=== PATIENT | male | born 1955 | race American Indian/Alaskan Native ===

== ENCOUNTER 2017-01-18 14:39 | Inpatient (IN) | payer MEDICAID, OTHER ==
[2017-01-18 15:28] LABS: BUN/Creatinine Ratio 31.25; Calcium 8.7 mg/dL (8.4-10.2); Chloride 98.8 mmol/L (98-107); Potassium 5.7 mmol/L (3.6-5.0)
[2017-01-18 15:34] LABS: Basophils % (Auto) 0.5 % (0.0-1.8); Eosinophils % (Auto) 0.4 % (0.0-4.3); Hematocrit 36.5 % (35.5-45.6); Hemoglobin 11.2 gm/dl (11.8-15.2); Mean Corpuscular HGB Conc 31 % (32-34); Mean Corpuscular Hemoglobin 26 pg (28-32); Mean Corpuscular Volume 86 fl (84-94); Platelet Count 110 K/mm3 (140-440); Red Blood Count 4.24 M/mm3 (3.65-5.03); White Blood Count 4.4 K/mm3 (4.5-11.0)
[2017-01-18] MEDS ORDERED: PROVENTIL IH ONE (16:00)
[2017-01-18] MEDS ORDERED: KIONEX PO ONE (16:00)
[2017-01-18] MEDS ORDERED: LASIX IV ONE (16:00)
[2017-01-18] MEDS ORDERED: CALCIUM GLUCONATE 1,000 MG in NACL 0.9% 100 ML IV ONE (16:00)
[2017-01-18] MEDS ORDERED: ZOFRAN IV ONE (16:01)
[2017-01-18] MEDS ORDERED: MORPHINE IV ONE (16:01)
--- NOTE | 2017-01-18 16:06 | Emergency Department Report ---
HPI - General Chief Complaint: Dyspnea/Respdistress Time Seen by Provider: 01/18/17 15:54 - HPI HPI: The patient is a 61-year-old male with a history of COPD, CHF, CK, and who presents for evaluation of chest pain or dyspnea. The patient reports 1 week of progressive dyspnea and chest pain, 5/10 in severity, pressure-like in quality, worsened with exertion or physical activity. He states that his dyspnea has been severe, constant, also worse with exertion, and improved with rest. He also reports associated bilateral lower leg swelling. The patient denies fever, syncope, hemoptysis, unilateral leg swelling, recent immobilization, history of DVT or PE, recent cancer. ED Past Medical Hx - Past Medical History Previous Medical History?: Yes Hx Hypertension: Yes Hx Heart Attack/AMI: No Hx Congestive Heart Failure: Yes (echo 04/25/2060 ER 15-20%. Evidence of severe pulmonary hypertension) Hx Diabetes: Yes Hx Deep Vein Thrombosis: No Hx Pulmonary Embolism: Yes Hx Liver Disease: No Hx Renal Disease: No Hx Sickle Cell Disease: No Hx Arthritis: No Hx Seizures: No Hx Kidney Stones: No Hx Asthma: No Hx COPD: Yes Hx Dementia: No Hx HIV: No Additional medical history: PE 2012 - Surgical History Past Surgical History?: Yes Hx Coronary Stent: No Hx Pacemaker: No Hx Internal Defibrillator: Yes (removed Jul) - Social History Smoking Status: Former Smoker Substance Use Type: Alcohol, Prescribed - Medications Home Medications: Home Medications Medication Instructions Recorded Confirmed Last Taken Type Carvedilol [Coreg] 25 mg PO BID tablet 05/01/15 04/25/16 04/24/16 Rx ISOSORBIDE MONOnitrate [Imdur ER] 120 mg PO QDAY tablet 05/01/15 04/25/1604/24 Rx Insulin Glargine [Lantus VIAL] 16 unit SUB-Q QHS #500 units 05/01/15 04/25/16 Rx Pregabalin [Lyrica] 75 mg PO BID capsule 05/01/15 04/25/16 04/25/16 Rx Bumetanide [Bumex] 1 mg PO BID 04/25/16 04/25/16 04/24/16 History Aspirin [Aspirin BABY CHEW TAB] 81 mg PO QDAY tab.chew 04/28/16 Unknown Rx Ipratropium/Albuterol Sulfate 1 ampul IH Q6HRT #30 ampul.neb 04/28/16 Unknown Rx [Duoneb 0.5 mg-3 mg/3 ml Soln] Lisinopril [Zestril TAB] 5 mg PO QDAY #30 tablet 04/28/16 Unknown Rx Metolazone [Zaroxolyn] 5 mg PO QDAY #30 tablet 04/28/16 Unknown Rx Warfarin [Coumadin] 10 mg PO DAILY@1700 tablet 04/28/16 Unknown Rx hydrALAZINE [Apresoline TAB] 50 mg PO Q8HR #90 tablet 04/28/16 Unknown Rx HYDROcodone/APAP 7.5-325 [[place] 1 each PO Q8HR PRN #21 tablet 06/30/16 Unknown Rx 7.5-325 mg TAB] ED Review of Systems ROS: Stated complaint: CHF Other details as noted in HPI Constitutional: denies: fever ENT: denies: throat or neck pain Respiratory: reports cough, shortness of breath Cardiovascular: denies: chest pain Endocrine: denies unexplained weight loss or gain Gastrointestinal: denies: abdominal pain, nausea Genitourinary: denies: dysuria Musculoskeletal: denies: leg swelling Skin: denies: rash Neurological: denies: headache Hematological/Lymphatic: denies: easy bleeding or easy bruising Psych: denies sadness or hopelessness Physical Exam - Physical Exam Vital Signs: Vital Signs 01/18/17 01/18/17 14:50 15:39 Temperature 97 F L Pulse Rate 65 Respiratory 20 22 Rate Blood Pressure 155/90 O2 Sat by Pulse 95 97 Oximetry Physical Exam: General: well-nourished, well-developed, no acute distress Head: Normocephalic, atraumatic Eyes: normal sclera ENT: Mucous membranes are pink and moist Neck: trachea midline, neck supple, No neck stiffness, no cervical adenopathy Respiratory: Diminished breath sounds and wheezing present throughout lung isidro bilaterally, mild crackles present to bibasilar lung isidro Cardio: S1 and S2 present, no murmurs, rubs, gallops, capillary refill is brisk Abdomen: Normoactive bowel sounds, soft abdomen, no rigidity, no guarding or rebound tenderness Chest WALL/Back: No tenderness to palpation of the chest wall, no CVA tenderness with percussion Musc: 1+ pitting edema of bilateral lower legs present Skin: No rash Neuro: no facial drooping, normal speech Psych: Normal affect ED Course Vital Signs 01/18/17 01/18/17 14:50 15:39 Temperature 97 F L Pulse Rate 65 Respiratory 20 22 Rate Blood Pressure 155/90 O2 Sat by Pulse 95 97 Oximetry ED Medical Decision Making - Lab Data Result diagrams: 01/18/17 14:57 01/18/17 14:57 - Medical Decision Making The patient was seen and examined by myself. The patient is placed on a monitoring analyst and continuous pulse ox. On initial evaluation, the patient was found to be in no distress. EKG was negative for findings suggestive of acute cardiac infarct. The patient is given an aspirin and a nitroglycerin tablet. Labs and imaging are obtained. The patient is given a DuoNeb breathing treatment and IV site measuring for treatment of COPD exacerbation. Chest x-ray is negative for pneumothorax, focal consolidation, pulmonary vascular congestion, pleural effusion, or other obvious acute cardiopulmonary disease process. Lab results revealed elevated glucose 172, elevated creatinine level of 2.4, elevated potassium level of 5.7, elevated troponin level of 0.122, troponin grossly at patient baseline on previous evaluations here. The patient is given albuterol occasionally for treatment of hyperkalemia. The on-call hospitalist service was contacted. They agreed to admit the patient for further treatment and close monitoring. The ED admit order was placed. The patient was admitted in guarded condition. Critical care attestation.: If time is entered above; I have spent that time in minutes in the direct care of this critically ill patient, excluding procedure time. ED Disposition Clinical Impression: Elevated troponin Disposition: OP ADMITTED IP TO THIS HOSP Is pt being admited?: Yes Does the pt Need Aspirin: Yes Condition: Fair Time of Disposition: 16:02
[2017-01-18] MEDS ORDERED: BABY ASPIRIN PO ONE (16:07)
--- NOTE | 2017-01-18 20:53 | Admit Criteria Form ---
Admission Criteria Documentation: COPD Clinical Indications for Admission to Inpatient Care (Place 'X' for any and all applicable criteria): Admission is indicated for ANY ONE of the following (1)(2)(3): [X ]I. Acute exacerbation by high-risk comorbidity (e.g., pneumonia, dysrhythmia, heart failure, pleural effusion, pneumothorax) or severe underlying COPD (e.g., steroid dependent) [ ]II. Inpatient admission required rather than observation care (see Chronic Obstructive Pulmonary Disease: Observation Care) because of ANY ONE of the following: [ ]a) New or pre-existing signs or symptoms of COPD (eg, dyspnea or Tachypnea at rest or with minimal activity) that persist despite outpatient and observation care treatment [ ]b) New-onset hypoxemia (room air SaO2 less than 90%, PO2 less than 60 mm Hg (8.0 kPa)) that persists despite outpatient and observation care treatment [ ]c) Worsening of pre-existing hypoxemia (eg, new or increased requirement for supplemental oxygen to maintain oxygenation at baseline level) that persists despite outpatient and observation care treatment, with oxygen treatment needs performable only in acute inpatient setting [ ]d) Hypercarbia (PCO2 greater than 40 mm Hg (5.3 kPa))-induced respiratory acidosis (pH less than 7.35) that persists despite outpatient and observation care treatment [ ]e) Supplemental oxygen or respiratory treatments for over 24 hours that are performable only in acute inpatient setting [ ]f) Chest tube placement with active evacuation (e.g., suction, drainage) (5) [ ]g) Other condition, treatment or monitoring requiring inpatient admission [ ]III. Planned invasive surgical or diagnostic procedures requiring acute- care hospitalization [ ]IV. Acute respiratory failure (e.g., uncompensated hypercarbia, severe hypoxemia) [ ]V. Severe comorbid condition (e.g., severe steroid myopathy, acute vertebral fracture) that has acutely worsened pulmonary function [ ]. Confusion state, lethargy, obtundation, stupor or coma Extended stay beyond goal length of stay may be needed for (31)(32): [ ]a ) Respiratory Failure. [ ]b) Severe or persisting hypoxemia or hypercarbia [ ]c) Severe or persistent dyspnea [ ]d) Comorbidities (e.g. chronic heart failure, atrial fibrillation with rapid response, pneumonia) [ ]e) Malnutrition The original [facility] content created by [facility] has been revised. The portions of the content which have been revised are identified through the use of italic text or in bold, and [facility] has neither reviewed nor approved the modified material. All other unmodified content is copyright [facility]. Please see references footnoted in the original [facility] edition 2016 Admission Criteria Met: Yes
--- NOTE | 2017-01-18 21:05 | History and Physical Report ---
History of Present Illness Date of examination: 01/18/17 Date of admission: 01/18/17 19:10 Chief complaint: Progressive Dyspnea 1 week History of present illness: 61 y/o male with HX of copd Htn CHF PE T2DM comes in for increasing Sob for 1 week.Cough productive of mucoid sputum no chills .NO fever no chills. Patient also has chest pain which is 5/10 pressure-like wanted quality worsened with physical activity. Shortness of breath is worse with exertion:patient states that his dyspnea has been severe constant and worse with exertion and improved with rest. Patient also says that he has bilateral leg swelling. Patient denies fever or syncope hemoptysis or recent immobilization history of DVT or PE or any cancer. Past History Past Medical History: CAD, diabetes, hypertension, hyperlipidemia (*1 that this was something) Past Surgical History: Other (internal defibrillator) Social history: smoking (former smoker alcohol occasionally.) Medications and Allergies Allergies Allergy/AdvReac Type Severity Reaction Status Date / Time No Known Allergies Allergy Verified 04/29/15 08:10 Home Medications Medication Instructions Recorded Confirmed Last Taken Type Carvedilol [Coreg] 25 mg PO BID tablet 05/01/15 01/18/17 04/24/16 Rx ISOSORBIDE MONOnitrate [Imdur ER] 120 mg PO QDAY tablet 05/01/15 01/18/1704/24 Rx Bumetanide [Bumex] 1 mg PO BID 04/25/16 01/18/17 04/24/16 History Aspirin [Aspirin BABY CHEW TAB] 81 mg PO QDAY tab.chew 04/28/16 01/18/17 Unknown Rx Ipratropium/Albuterol Sulfate 1 ampul IH Q6HRT #30 ampul.neb 04/28/16 01/18/17 Unknown Rx [Duoneb 0.5 mg-3 mg/3 ml Soln] hydrALAZINE [Apresoline TAB] 50 mg PO Q8HR #90 tablet 04/28/16 01/18/17 Unknown Rx Gabapentin [Neurontin] 300 mg PO Q8HR 01/18/17 01/18/17 Unknown History HYDROcodone/APAP 7.5-325 [[place] 5 mg PO Q8HR PRN 01/18/17 01/18/17 Unknown History 7.5-325 mg TAB] Insulin Glargine [Lantus VIAL] 25 unit SUB-Q QHS 01/18/17 01/18/17 Unknown History Losartan [Cozaar] 50 mg PO QDAY 01/18/17 01/18/17 Unknown History Review of Systems All systems: negative Constitutional: no weight loss, no weight gain Ears, nose, mouth and throat: no sore throat, no odynophagia, no voice changes, no post-nasal drip Cardiovascular: chest pain, shortness of breath, dyspnea on exertion Respiratory: cough with sputum, dyspnea on exertion, congestion, wheezing Gastrointestinal: no nausea, no vomiting, no diarrhea, no constipation Genitourinary Male: no hematuria, no flank pain, no urinary frequency, no urinary hesitancy, no nocturia, no genital pain Musculoskeletal: no neck stiffness, no neck pain, no myalgias Integumentary: no rash, no pruritis, no redness, no sores Neurological: no seizures, no syncope Psychiatric: no hallucinations, no depression Endocrine: no cold intolerance, no heat intolerance, no polydipsia, no polyuria Exam - Constitutional Vitals: Temp Pulse Resp BP Pulse Ox 97 F L 72 13 162/89 97 01/18/17 14:50 01/18/17 19:00 01/18/17 19:00 01/18/17 19:00 01/18/17 15:39 General appearance: Present: no acute distress, well-nourished - EENT Eyes: Present: PERRL ENT: hearing intact, clear oral mucosa - Neck Neck: Present: supple, normal ROM - Respiratory Respiratory effort: normal Respiratory: bilateral: CTA, rales, rhonchi - Cardiovascular Heart Sounds: Present: S1 & S2. Absent: rub, click - Extremities Extremities: pulses symmetrical, No edema Peripheral Pulses: within normal limits - Abdominal General gastrointestinal: Present: soft, non-tender, non-distended, normal bowel sounds Male genitourinary: Present: normal - Integumentary Integumentary: Present: clear, warm, dry - Musculoskeletal Musculoskeletal: gait normal, strength equal bilaterally - Psychiatric Psychiatric: appropriate mood/affect, intact judgment & insight - Neurologic Neurologic: CNII-XII intact, moves all extremities Results - Labs CBC & Chem 7: 01/19/17 05:00 01/19/17 05:00 Labs: Laboratory Last Values WBC 4.4 K/mm3 (4.5-11.0) L 01/18/17 14:57 RBC 4.24 M/mm3 (3.65-5.03) 01/18/17 14:57 Hgb 11.2 gm/dl (11.8-15.2) L 01/18/17 14:57 Hct 36.5 % (35.5-45.6) 01/18/17 14:57 MCV 86 fl (84-94) 01/18/17 14:57 MCH 26 pg (28-32) L 01/18/17 14:57 MCHC 31 % (32-34) L 01/18/17 14:57 RDW 22.0 % (13.2-15.2) H 01/18/17 14:57 Plt Count 110 K/mm3 (140-440) L 01/18/17 14:57 Lymph % (Auto) 9.2 % (13.4-35.0) L 01/18/17 14:57 [place] % (Auto) 6.5 % (0.0-7.3) 01/18/17 14:57 Eos % (Auto) 0.4 % (0.0-4.3) 01/18/17 14:57 Baso % (Auto) 0.5 % (0.0-1.8) 01/18/17 14:57 Lymph # 0.4 K/mm3 (1.2-5.4) L 01/18/17 14:57 [place] # 0.3 K/mm3 (0.0-0.8) 01/18/17 14:57 Eos # 0.0 K/mm3 (0.0-0.4) 01/18/17 14:57 Baso # 0.0 K/mm3 (0.0-0.1) 01/18/17 14:57 Seg Neutrophils % 83.4 % (40.0-70.0) H 01/18/17 14:57 Seg Neutrophils # 3.7 K/mm3 (1.8-7.7) 01/18/17 14:57 D-Dimer 1652.46 ng/mlDDU (0-234) H 01/18/17 14:59 Sodium 137 mmol/L (137-145) 01/18/17 14:57 Potassium 5.7 mmol/L (3.6-5.0) H 01/18/17 14:57 Chloride 98.8 mmol/L (98-107) 01/18/17 14:57 Carbon Dioxide 24 mmol/L (22-30) 01/18/17 14:57 Anion Gap 20 mmol/L 01/18/17 14:57 BUN 75 mg/dL (9-20) H 01/18/17 14:57 Creatinine 2.4 mg/dL (0.8-1.5) H 01/18/17 14:57 Estimated GFR 33 ml/min 01/18/17 14:57 BUN/Creatinine Ratio 31.25 % 01/18/17 14:57 Glucose 172 mg/dL (75-100) H 01/18/17 14:57 Calcium 8.7 mg/dL (8.4-10.2) 01/18/17 14:57 Troponin T 0.122 ng/mL (0.00-0.029) H* 01/18/17 14:57 Triglycerides 76 mg/dL (2-149) 01/18/17 14:57 Cholesterol 117 mg/dL (50-199) 01/18/17 14:57 LDL Cholesterol Direct 58 mg/dL (50-130) 01/18/17 14:57 HDL Cholesterol 44 mg/dL (40-59) 01/18/17 14:57 Cholesterol/HDL Ratio 2.65 % 01/18/17 14:57 - Imaging and Cardiology EKG: report reviewed Chest x-ray: report reviewed Assessment and Plan Advance Directives: Yes (wants full code) VTE prophylaxis?: Chemical, Not ordered Plan of care discussed with patient/family: Yes - Patient Problems (1) Acute exacerbation of chronic obstructive pulmonary disease (COPD) Current Visit: Yes Status: Acute Plan to address problem: Patient needs to be on duo nebs every 6 hrs [id number] and every 3 hrs prn and IV Levaquin 750 every 24 hours and the pharmacy to readjust the dosage. IV Solu-Medrol 60 mg every 8 hourse. (2) Acute on chronic systolic heart failure Current Visit: Yes Status: Acute Plan to address problem: Patient started on Lasix and potassium on a regular basis.. Po potassium and IV Lasix at the time of discharge. . (3) Elevated troponin Current Visit: Yes Status: Acute Plan to address problem: May be nonspecific. (4) Accelerated hypertension Current Visit: No Status: Acute Plan to address problem: Antihypertensives to be adjusted. (5) Transaminitis Current Visit: No Status: Acute (6) Warfarin-induced coagulopathy Current Visit: No Status: Acute Plan to address problem: We will check hepatitis A, B, and C. (7) Diabetes mellitus Current Visit: No Status: Chronic Qualifiers: Diabetes mellitus type: type 2 Diabetes mellitus complication status: with hypoglycemia Diabetes mellitus complication detail: without coma Diabetic retinopathy severity: D Proliferative retinopathy type: P Diabetes mellitus macular edema: D Diabetes mellitus termite renewal inspector insulin use: D Laterality: L Chronic kidney disease stage: C Plan to address problem: Lantus 25 units sq q hs and coverage (8) COPD with exacerbation Current Visit: Yes Status: Acute (9) COPD with exacerbation Current Visit: Yes Status: Acute
[2017-01-18] MEDS ORDERED: DULCOLAX PR PRN (21:12)
[2017-01-18] MEDS ORDERED: TYLENOL PO PRN (21:12)
[2017-01-18] MEDS ORDERED: MILK OF MAGNESIA PO PRN (21:12)
[2017-01-18] MEDS ORDERED: ZOFRAN IV PRN (21:12)
[2017-01-18] MEDS ORDERED: DUONEB 0.5 MG-3 MG/3 ML SOLN IH PRN (21:20)
[2017-01-18] MEDS ORDERED: K-DUR PO ONE (21:23)
[2017-01-18] MEDS ORDERED: APRESOLINE IV PRN (21:32)
[2017-01-18] MEDS ORDERED: APRESOLINE ONE (21:38)
[2017-01-18] MEDS ORDERED: DILAUDID ONE (21:38)
[2017-01-18] MEDS ORDERED: PROVENTIL IH PRN (21:38)
[2017-01-18] MEDS: DILAUDID IV PRN ×2 (21:40→23:50)
[2017-01-18] MEDS ORDERED: LEVAQUIN 750MG/150ML 750 MG/150 ML BAG IV SCH (22:00)
[2017-01-18] MEDS ORDERED: LEVAQUIN 750MG/150ML 150 ML IV SCH (22:00)
[2017-01-18] MEDS: DUONEB 0.5 MG-3 MG/3 ML SOLN IH SCH (22:32)
[2017-01-18] MEDS: D5NS 1,000 ML IV SCH (23:20)
[2017-01-18] MEDS: PERCOCET 5/325 PO PRN (23:21)
[2017-01-18] MEDS: LASIX IV SCH (23:21)
[2017-01-19] MEDS: DUONEB 0.5 MG-3 MG/3 ML SOLN IH SCH ×4 (02:10→19:31)
[2017-01-19] MEDS: DILAUDID IV PRN ×2 (03:18→06:11)
[2017-01-19 05:49] LABS: Hematocrit 34.6 % (35.5-45.6); Hemoglobin 10.7 gm/dl (11.8-15.2); Mean Corpuscular HGB Conc 31 % (32-34); Mean Corpuscular Hemoglobin 27 pg (28-32); Mean Corpuscular Volume 85 fl (84-94); Platelet Count 112 K/mm3 (140-440); Red Blood Count 4.05 M/mm3 (3.65-5.03); White Blood Count 5.1 K/mm3 (4.5-11.0)
[2017-01-19 06:05] LABS: BUN/Creatinine Ratio 32.27; Bilirubin,Total 1.4 mg/dL (0.1-1.2); Calcium 8.5 mg/dL (8.4-10.2); Chloride 101.4 mmol/L (98-107); Potassium 4.4 mmol/L (3.6-5.0); Total Protein 6.7 g/dL (6.3-8.2)
[2017-01-19 06:09] LABS: Red Cell Distribution Width 21.7 % (13.2-15.2)
[2017-01-19 06:19] LABS: Albumin 3.3 g/dL (3.9-5)
[2017-01-19 06:54] LABS: Blastocytes % (Manual) 0 %
[2017-01-19 06:55] LABS: Anisocytosis 1+; Basophils % (Manual) 0 % (0.0-1.8); Eosinophils % (Manual) 0 % (0.0-4.3); Macrocytosis 1+; Total Cells Counted Percent 0
[2017-01-19 06:56] LABS: Diff Status Complete; Platelet Estimate Appears Decreased; Smudge Cells Few
--- NOTE | 2017-01-19 08:34 | XRay Report ---
CHEST 2 VIEWS INDICATION: Shortness of breath. COMPARISON: 06/27/2016 FINDINGS: Frontal and lateral chest radiographs demonstrate slight limited inspiration with mild exaggerated cardiomediastinal silhouette/possible cardiomegaly. Aortic knob calcifications, somewhat prominent right hilum and minimal fluid or thickening along the right minor fissure again noted. Somewhat flattened hemidiaphragms with subtle costophrenic angle blunting again not excluded. No large pleural effusion or CHF. Demineralized bones with degenerative changes. CONCLUSION: Cardiomegaly again noted with other findings, as above. Thank you for the opportunity to participate in this patient's care.
[2017-01-19] MEDS ORDERED: LOVENOX SUB-Q SCH (10:00)
[2017-01-19] MEDS: LASIX IV SCH (11:17)
--- NOTE | 2017-01-19 11:23 | Nuclear Medicine Report ---
LUNG SCAN, VENTILATION AND PERFUSION: History: Dyspnea. Technique: 5mci of Tc99m MAA was infused for the perfusion images. 15mci XE 133 gas was inhaled for the ventilatory images. Correlation is made with a chest x-ray dated 01/18/17. Findings: Inhalation of Xenon gas demonstrates a normal distribution of the activity throughout both lungs. The wash out phases show no focal retention of activity. After injection of Technetium 99m macroaggregated albumin gamma camera imaging of the lungs in multiple projections demonstrates A solitary wedge-shaped perfusion defect which extends to the pleural surface in the anterior right upper lobe. No additional perfusion defects are identified. IMPRESSION: Intermediate probability for pulmonary embolus. A solitary perfusion defect is identified in the right upper lobe. There is questionable scarring in this area on chest x-ray. Further evaluation with CTA chest should be considered.
[2017-01-19] MEDS: D5NS 1,000 ML IV SCH (15:15)
--- NOTE | 2017-01-19 20:06 | Event Note ---
Date: 01/19/17 Dr. Ennis thank you for asking us to participate in the care of this patient. l consultation dictated.Consultation dictation number [id number] Impression: 1/ COPD exagerbation 2. Cardiomegaly 3. CHF 4. Hypertension 5. Diabetes. 6. Peripheral edema. 7 . Acute bronchitis PLAN: 1. O2 2 litres via nasal canula. 2. Albuterol/atrovent aerosol treatments q 6 hours. 3. Continue I/V solumedra. 4. Continue S/C Lovenox. 5. ABGs on room air 6. Venous doppler studies of legs. 7. PFTs as out patient.
[2017-01-20] MEDS: PERCOCET 5/325 PO PRN (01:25)
[2017-01-20] MEDS: D5NS 1,000 ML IV SCH (01:25)
[2017-01-20] MEDS: DUONEB 0.5 MG-3 MG/3 ML SOLN IH SCH ×4 (01:29→19:27)
--- NOTE | 2017-01-20 02:13 | Progress Note ---
Assessment and Plan - Patient Problems (1) Acute exacerbation of chronic obstructive pulmonary disease (COPD) Current Visit: Yes Status: Acute Plan to address problem: Pulmonary consulted, IV steroids, supportive care, supplemental oxygen, nebs (2) Acute on chronic systolic heart failure Current Visit: Yes Status: Acute Plan to address problem: CHF Protocol: fluid restriction, sodium restriction, afterload reduction, diuretics, dialy weights, monitor uop q shift. (3) Accelerated hypertension Current Visit: No Status: Acute Plan to address problem: monitor bp q shift, continue current therapy (4) Chronic kidney disease, stage III (moderate) Current Visit: No Status: Acute Plan to address problem: monitor uop q shift, treat Chf (5) DVT prophylaxis Current Visit: No Status: Acute History Interval history: Pt resting, sitting on side of bed, Pt denies pain, but complains of leg swelling and difficulty breathing, No reported nursing events. Hospitalist Physical - Constitutional Vitals: Temp Pulse Resp BP Pulse Ox 98.5 F 85 20 168/98 97 01/20/17 00:00 01/20/17 01:34 01/20/17 01:34 01/20/17 00:00 01/20/17 00:00 General appearance: Present: no acute distress, well-nourished - EENT Eyes: Present: PERRL ENT: hearing intact - Neck Neck: Present: supple - Respiratory Respiratory: bilateral: diminished - Cardiovascular Rhythm: regular Heart Sounds: Present: S1 & S2 - Extremities Extremities: no ischemia Extremity abnormal: edema Peripheral Pulses: within normal limits - Abdominal General gastrointestinal: soft, non-tender, non-distended - Integumentary Integumentary: Present: clear, dry - Psychiatric Psychiatric: appropriate mood/affect, cooperative - Neurologic Neurologic: CNII-XII intact Results - Labs CBC & Chem 7: 01/19/17 05:00 01/19/17 05:00 Labs: Laboratory Last Values WBC 5.1 K/mm3 (4.5-11.0) 01/19/17 05:00 RBC 4.05 M/mm3 (3.65-5.03) 01/19/17 05:00 Hgb 10.7 gm/dl (11.8-15.2) L 01/19/17 05:00 Hct 34.6 % (35.5-45.6) L 01/19/17 05:00 MCV 85 fl (84-94) 01/19/17 05:00 MCH 27 pg (28-32) L 01/19/17 05:00 MCHC 31 % (32-34) L 01/19/17 05:00 RDW 21.7 % (13.2-15.2) H 01/19/17 05:00 Plt Count 112 K/mm3 (140-440) L 01/19/17 05:00 Lymph % (Auto) 9.2 % (13.4-35.0) L 01/18/17 14:57 [place] % (Auto) 6.5 % (0.0-7.3) 01/18/17 14:57 Eos % (Auto) 0.4 % (0.0-4.3) 01/18/17 14:57 Baso % (Auto) 0.5 % (0.0-1.8) 01/18/17 14:57 Lymph # 0.4 K/mm3 (1.2-5.4) L 01/18/17 14:57 [place] # 0.3 K/mm3 (0.0-0.8) 01/18/17 14:57 Eos # 0.0 K/mm3 (0.0-0.4) 01/18/17 14:57 Baso # 0.0 K/mm3 (0.0-0.1) 01/18/17 14:57 Add Manual Diff Complete 01/19/17 05:00 Total Counted 100 01/19/17 05:00 Seg Neutrophils % Document Control Manager 01/19/17 05:00 Seg Neuts % (Manual) 99.0 % (40.0-70.0) H 01/19/17 05:00 Band Neutrophils % 0 % 01/19/17 05:00 Lymphocytes % (Manual) 1.0 % (13.4-35.0) L 01/19/17 05:00 Reactive Lymphs % (Man) 0 % 01/19/17 05:00 Monocytes % (Manual) 0 % (0.0-7.3) 01/19/17 05:00 Eosinophils % (Manual) 0 % (0.0-4.3) 01/19/17 05:00 Basophils % (Manual) 0 % (0.0-1.8) 01/19/17 05:00 Metamyelocytes % 0 % 01/19/17 05:00 Myelocytes % 0 % 01/19/17 05:00 Promyelocytes % 0 % 01/19/17 05:00 Blast Cells % 0 % 01/19/17 05:00 Nucleated RBC % 2.0 % (0.0-0.9) H 01/19/17 05:00 Seg Neutrophils # 3.7 K/mm3 (1.8-7.7) 01/18/17 14:57 Seg Neutrophils # Man 5.0 K/mm3 (1.8-7.7) 01/19/17 05:00 Band Neutrophils # 0.0 K/mm3 01/19/17 05:00 Lymphocytes # (Manual) 0.1 K/mm3 (1.2-5.4) L 01/19/17 05:00 Abs React Lymphs (Man) 0.0 K/mm3 01/19/17 05:00 Monocytes # (Manual) 0.0 K/mm3 (0.0-0.8) 01/19/17 05:00 Eosinophils # (Manual) 0.0 K/mm3 (0.0-0.4) 01/19/17 05:00 Basophils # (Manual) 0.0 K/mm3 (0.0-0.1) 01/19/17 05:00 Metamyelocytes # 0.0 K/mm3 01/19/17 05:00 Myelocytes # 0.0 K/mm3 01/19/17 05:00 Promyelocytes # 0.0 K/mm3 01/19/17 05:00 Blast Cells # 0.0 K/mm3 01/19/17 05:00 WBC Morphology Not Reportable 01/19/17 05:00 Hypersegmented Neuts Not Reportable 01/19/17 05:00 Hyposegmented Neuts Not Reportable 01/19/17 05:00 Hypogranular Neuts Not Reportable 01/19/17 05:00 Smudge Cells Few 01/19/17 05:00 Toxic Granulation Not Reportable 01/19/17 05:00 Toxic Vacuolation Not Reportable 01/19/17 05:00 Dohle Bodies Not Reportable 01/19/17 05:00 Pelger-Huet Anomaly Not Reportable 01/19/17 05:00 Alvaro Rods Not Reportable 01/19/17 05:00 Platelet Estimate Appears decreased 01/19/17 05:00 Clumped Platelets Not Reportable 01/19/17 05:00 Plt Clumps, EDTA Not Reportable 01/19/17 05:00 Large Platelets Not Reportable 01/19/17 05:00 Giant Platelets Not Reportable 01/19/17 05:00 Platelet Satelliting Not Reportable 01/19/17 05:00 Plt Morphology Comment Not Reportable 01/19/17 05:00 RBC Morphology Not Reportable 01/19/17 05:00 Dimorphic RBCs Not Reportable 01/19/17 05:00 Polychromasia Not Reportable 01/19/17 05:00 Hypochromasia Not Reportable 01/19/17 05:00 Poikilocytosis Not Reportable 01/19/17 05:00 Anisocytosis 1+ 01/19/17 05:00 Microcytosis Not Reportable 01/19/17 05:00 Macrocytosis 1+ 01/19/17 05:00 Spherocytes Not Reportable 01/19/17 05:00 Pappenheimer Bodies Not Reportable 01/19/17 05:00 Sickle Cells Not Reportable 01/19/17 05:00 Target Cells Not Reportable 01/19/17 05:00 Tear Drop Cells Not Reportable 01/19/17 05:00 Ovalocytes Not Reportable 01/19/17 05:00 Helmet Cells Not Reportable 01/19/17 05:00 Garcia-[place] Bodies Not Reportable 01/19/17 05:00 [place] Rings Not Reportable 01/19/17 05:00 [place] Cells Not Reportable 01/19/17 05:00 Bite Cells Not Reportable 01/19/17 05:00 Crenated Cell Not Reportable 01/19/17 05:00 Elliptocytes Not Reportable 01/19/17 05:00 Acanthocytes (Spur) Not Reportable 01/19/17 05:00 Rouleaux Not Reportable 01/19/17 05:00 Hemoglobin C Crystals Not Reportable 01/19/17 05:00 Schistocytes Not Reportable 01/19/17 05:00 Malaria parasites Not Reportable 01/19/17 05:00 Oscar Bodies Not Reportable 01/19/17 05:00 Hem Pathologist Commnt No 01/19/17 05:00 D-Dimer 1652.46 ng/mlDDU (0-234) H 01/18/17 14:59 Sodium 137 mmol/L (137-145) 01/18/17 14:57 Potassium 4.4 mmol/L (3.6-5.0) D 01/19/17 05:00 Chloride 98.8 mmol/L (98-107) 01/18/17 14:57 Carbon Dioxide 20 mmol/L (22-30) L 01/19/17 05:00 Anion Gap 20 mmol/L 01/18/17 14:57 BUN 71 mg/dL (9-20) H 01/19/17 05:00 Creatinine 2.2 mg/dL (0.8-1.5) H 01/19/17 05:00 Estimated GFR 37 ml/min 01/19/17 05:00 BUN/Creatinine Ratio 32.27 % 01/19/17 05:00 Glucose 354 mg/dL (75-100) H 01/19/17 05:00 POC Glucose 257 (70-105) H 01/18/17 21:05 Calcium 8.5 mg/dL (8.4-10.2) 01/19/17 05:00 Total Bilirubin 1.4 mg/dL (0.1-1.2) H 01/19/17 05:00 AST 59 units/L (5-40) H 01/19/17 05:00 ALT 35 units/L (7-56) 01/19/17 05:00 Alkaline Phosphatase 499 units/L (35-129) H 01/19/17 05:00 Troponin T 0.122 ng/mL (0.00-0.029) H* 01/18/17 14:57 Total Protein 6.7 g/dL (6.3-8.2) 01/19/17 05:00 Albumin 3.3 g/dL (3.9-5) L 01/19/17 05:00 Albumin/Globulin Ratio 1.0 % 01/19/17 05:00 Triglycerides 76 mg/dL (2-149) 01/18/17 14:57 Cholesterol 117 mg/dL (50-199) 01/18/17 14:57 LDL Cholesterol Direct 58 mg/dL (50-130) 01/18/17 14:57 HDL Cholesterol 44 mg/dL (40-59) 01/18/17 14:57 Cholesterol/HDL Ratio 2.65 % 01/18/17 14:57
[2017-01-20] MEDS: DILAUDID IV PRN (03:38)
--- NOTE | 2017-01-20 07:36 | Ultrasound Report ---
ULTRASOUND ABDOMEN COMPLETE History: Abdominal pain. Comparison: 04/29/15. Findings: Transabdominal ultrasound with color Doppler interrogation was performed. There is small to medium ascites on today's exam outlining the liver and spleen. The liver has a slightly coarse echotexture but no evidence for mass, cyst or surface nodularity. The spleen is unremarkable and measures 10 cm. The gallbladder demonstrates mild diffuse wall thickening which is probably secondary to ascites. There is no evidence for cholelithiasis or dilatation. The CBD measures 3 mm. The pancreas is unremarkable. The right kidney measures 11.7 cm. The left kidney measures 11.9 cm. Both kidneys are echogenic but no evidence for cysts, mass, calculus or hydronephrosis. The proximal aorta measures 2.1 cm. Impression: Small medial ascites. Slightly coarse echotexture the liver without focal mass or significant cirrhotic changes. Slightly echogenic kidneys consistent with medical renal disease.
--- NOTE | 2017-01-20 08:53 | Consultation ---
HISTORY OF PRESENT ILLNESS: This is a 61-year-old -[place] male, he admitted with complaint of shortness of breath and slight shortness of breath and cough. He also complains of abdominal pain and diarrhea. The patient has a history of smoking in the past. He has a history of COPD. The patient has a history of hypertension and congestive heart failure. He also has a history of diabetes mellitus. The patient also complained swelling of the legs. The patient has also hyperlipidemia. SOCIAL HISTORY: He has a history of smoking for 1 pack may be 15 years. He said he worked in [employer] before he retired. He is . He has three children. ALLERGIES: Denies any allergies to medications. PHYSICAL EXAMINATION: GENERAL: The patient is alert, awake, in mild shortness of breath at rest. VITAL SIGNS: Temperature 97.8, pulse 85, respirations 18, O2 saturation 92% on 2 liters, and blood pressure 168/91. EYES: Pupils reactive to the light. NECK: Supple. Appears there is a JVD. HEART: Slight systolic murmur, grade 2/6. LUNGS: Few rales and prolonged expiratory phase. ABDOMEN: Slightly distended. Bowel sounds are present. No CVA tenderness. MUSCULOSKELETAL: There is edema 1 to 2+. EXTREMITIES: No calf tenderness. NEUROLOGICAL: No focal neurological deficits. LABORATORY DATA: The patient's CBC: WBC is 5.1, hemoglobin 10.7, hematocrit 34.6, platelet count 112,000. The patient's BMP: Sodium is 137, potassium is 4.4, carbon dioxide is 20, BUN 71, creatinine 2.2, calcium 8.5, alkaline phosphatase 499, albumin 3.3. The patient's chest x-ray reported cardiomegaly and the patient has a ventilation perfusion lung scan and reported intermediate probability for pulmonary embolism and no solitary perfusion defect is identified and was recommended further evaluation of the CTA. The patient has history of renal failure and nurse obtaining venous Doppler studies of the legs. IMPRESSION: 1. Chronic obstructive pulmonary disease. 2. Cardiomegaly. 3. Congestive heart failure. 4. Hypertension. 5. Diabetes mellitus. 6. Peripheral edema. 7. Acute bronchitis. PLAN: 1. O2, 2 liters via nasal cannula. 2. Albuterol and Atrovent aerosol treatments q.6 hours. 3. Continue IV Solu-Medrol. 4. Continue subcutaneous Lovenox. 5. ABGs on room air. 6. Venous Doppler studies of the legs. 7. PFTs as an outpatient. I want to thank Dr. Ennis for this consultation. I will follow the patient with him. JOB# [id number] RSAngelica/NTS
[2017-01-20] MEDS ORDERED: NORCO 7.5/325 PO PRN (09:15)
[2017-01-20 10:44] LABS: Hematocrit 34.5 % (35.5-45.6); Hemoglobin 10.5 gm/dl (11.8-15.2)
[2017-01-20 10:55] LABS: INR 1.41 (0.87-1.13)
[2017-01-20 10:56] LABS: BUN/Creatinine Ratio 33.8; Calcium 8.2 mg/dL (8.4-10.2); Chloride 96.7 mmol/L (98-107); Partial Thromboplastin Time 29.9 Sec. (24.2-36.6); Potassium 4.6 mmol/L (3.6-5.0)
[2017-01-20 11:44] LABS: ISTAT Base Excess -5; ISTAT DEVICE 0; ISTAT HCO3 20.3; ISTAT PCO2 33.2 (35-45); ISTAT PH 7.396 (7.35-7.45); ISTAT PO2 72 (80-105); ISTAT SO2 94; ISTAT TCO2 21
[2017-01-20] MEDS: LEVAQUIN PO SCH (11:49)
[2017-01-20] MEDS: COREG PO SCH ×2 (11:49→22:27)
[2017-01-20] MEDS: IMDUR PO SCH (11:49)
[2017-01-20] MEDS: BUMEX PO SCH ×2 (11:49→22:27)
[2017-01-20] MEDS: COZAAR PO SCH (11:49)
--- NOTE | 2017-01-20 14:23 | Progress Note ---
Assessment and Plan Assessment and plan: (1) Acute exacerbation of chronic obstructive pulmonary disease (COPD) Current Visit: Yes Status: Acute Plan to address problem: cont duo nebs every 6 hrs [id number] and every 3 hrs prn and IV Levaquin 750 every 24 hours IV Solu-Medrol with tappering dose (2) Acute on chronic systolic heart failure Current Visit: Yes Status: Acute Plan to address problem: cont Bumex, monitor renal function Ef 40 to 45% (3) Elevated d-dimer Current Visit: Yes Status: Acute Plan to address problem: intermediate probability for PE on VQ scan will place on heparin drip Cannot get CT of chest for worsening renal function (4) Accelerated hypertension Current Visit: No Status: Acute Plan to address problem: Adjust BP meds as needed, better control now. (5) elevated troponin Current Visit: No Status: Acute Could be due to CHF exacerbation with worsening renal function (6)ENRIQUE Current Visit: No Status: Acute Plan to address problem: We'll monitor renal function carefully Avoid any nephrotoxins He continued to get worse we'll consult nephrology We will get renal ultrasound (7) Diabetes mellitus Current Visit: No Status: Chronic Qualifiers: Diabetes mellitus type: type 2 Diabetes mellitus complication status: with hypoglycemia Diabetes mellitus complication detail: without coma Diabetic retinopathy severity: D Proliferative retinopathy type: P Diabetes mellitus macular edema: D Diabetes mellitus emt intermediate insulin use: D Laterality: L Chronic kidney disease stage: C Plan to address problem: Lantus 25 units sq and SSI coverage Blood glucose was uncontrolled this morning liklely due to steroid History Interval history: Patient seen and examined. Medical records and medication list reviewed. No acute event overnight noted by the RN. Patient c/o exertional difficulty breathing. Patient is tolerating diet. Still has significant b/l LE swelling. Discussed plan of care at bedside with patient. Hospitalist Physical - Physical exam Narrative exam: GENERAL: Elderly AAM lying on bed appeared to be in no discomfort. HEENT: Normocephalic. Atraumatic. No conjunctival congestion or icterus. Patient has moist mucous membranes. NECK: Supple. Trachea midline. CHEST/LUNGS: decrease BS auscultated bilaterally, breathing nonlabored. few bibasilar crackles. HEART/CARDIOVASCULAR: Regular in rate and rhythm. S1 and S2 positive. ABDOMEN: Abdomen is soft, nontender. Patient has normal bowel sounds. SKIN: There is no rash. Warm and dry. NEURO: No focal motor deficit. Follows command. MUSCULOSKELETAL: No joint effusion or tenderness. EXTRIMITY: 3+ edema, no cyanosis or clubbing. PSYCH: Cooperative. - Constitutional Vitals: Temp Pulse Resp BP Pulse Ox 97.9 F 84 16 163/104 96 01/20/17 08:00 01/20/17 08:12 01/20/17 08:12 01/20/17 08:00 01/20/17 11:30 General appearance: Present: no acute distress, well-nourished Results - Labs CBC & Chem 7: 01/20/17 10:29 01/21/17 10:49 Labs: Laboratory Last Values WBC 5.1 K/mm3 (4.5-11.0) 01/19/17 05:00 RBC 4.05 M/mm3 (3.65-5.03) 01/19/17 05:00 Hgb 10.5 gm/dl (11.8-15.2) L 01/20/17 10:29 Hct 34.5 % (35.5-45.6) L 01/20/17 10:29 MCV 85 fl (84-94) 01/19/17 05:00 MCH 27 pg (28-32) L 01/19/17 05:00 MCHC 31 % (32-34) L 01/19/17 05:00 RDW 21.7 % (13.2-15.2) H 01/19/17 05:00 Plt Count 90 K/mm3 (140-440) L 01/20/17 10:29 Lymph % (Auto) 9.2 % (13.4-35.0) L 01/18/17 14:57 [place] % (Auto) 6.5 % (0.0-7.3) 01/18/17 14:57 Eos % (Auto) 0.4 % (0.0-4.3) 01/18/17 14:57 Baso % (Auto) 0.5 % (0.0-1.8) 01/18/17 14:57 Lymph # 0.4 K/mm3 (1.2-5.4) L 01/18/17 14:57 [place] # 0.3 K/mm3 (0.0-0.8) 01/18/17 14:57 Eos # 0.0 K/mm3 (0.0-0.4) 01/18/17 14:57 Baso # 0.0 K/mm3 (0.0-0.1) 01/18/17 14:57 Add Manual Diff Complete 01/19/17 05:00 Total Counted 100 01/19/17 05:00 Seg Neutrophils % Spinning Frame Cleaner 01/19/17 05:00 Seg Neuts % (Manual) 99.0 % (40.0-70.0) H 01/19/17 05:00 Band Neutrophils % 0 % 01/19/17 05:00 Lymphocytes % (Manual) 1.0 % (13.4-35.0) L 01/19/17 05:00 Reactive Lymphs % (Man) 0 % 01/19/17 05:00 Monocytes % (Manual) 0 % (0.0-7.3) 01/19/17 05:00 Eosinophils % (Manual) 0 % (0.0-4.3) 01/19/17 05:00 Basophils % (Manual) 0 % (0.0-1.8) 01/19/17 05:00 Metamyelocytes % 0 % 01/19/17 05:00 Myelocytes % 0 % 01/19/17 05:00 Promyelocytes % 0 % 01/19/17 05:00 Blast Cells % 0 % 01/19/17 05:00 Nucleated RBC % 2.0 % (0.0-0.9) H 01/19/17 05:00 Seg Neutrophils # 3.7 K/mm3 (1.8-7.7) 01/18/17 14:57 Seg Neutrophils # Man 5.0 K/mm3 (1.8-7.7) 01/19/17 05:00 Band Neutrophils # 0.0 K/mm3 01/19/17 05:00 Lymphocytes # (Manual) 0.1 K/mm3 (1.2-5.4) L 01/19/17 05:00 Abs React Lymphs (Man) 0.0 K/mm3 01/19/17 05:00 Monocytes # (Manual) 0.0 K/mm3 (0.0-0.8) 01/19/17 05:00 Eosinophils # (Manual) 0.0 K/mm3 (0.0-0.4) 01/19/17 05:00 Basophils # (Manual) 0.0 K/mm3 (0.0-0.1) 01/19/17 05:00 Metamyelocytes # 0.0 K/mm3 01/19/17 05:00 Myelocytes # 0.0 K/mm3 01/19/17 05:00 Promyelocytes # 0.0 K/mm3 01/19/17 05:00 Blast Cells # 0.0 K/mm3 01/19/17 05:00 WBC Morphology Not Reportable 01/19/17 05:00 Hypersegmented Neuts Not Reportable 01/19/17 05:00 Hyposegmented Neuts Not Reportable 01/19/17 05:00 Hypogranular Neuts Not Reportable 01/19/17 05:00 Smudge Cells Few 01/19/17 05:00 Toxic Granulation Not Reportable 01/19/17 05:00 Toxic Vacuolation Not Reportable 01/19/17 05:00 Dohle Bodies Not Reportable 01/19/17 05:00 Pelger-Huet Anomaly Not Reportable 01/19/17 05:00 Alvaro Rods Not Reportable 01/19/17 05:00 Platelet Estimate Appears decreased 01/19/17 05:00 Clumped Platelets Not Reportable 01/19/17 05:00 Plt Clumps, EDTA Not Reportable 01/19/17 05:00 Large Platelets Not Reportable 01/19/17 05:00 Giant Platelets Not Reportable 01/19/17 05:00 Platelet Satelliting Not Reportable 01/19/17 05:00 Plt Morphology Comment Not Reportable 01/19/17 05:00 RBC Morphology Not Reportable 01/19/17 05:00 Dimorphic RBCs Not Reportable 01/19/17 05:00 Polychromasia Not Reportable 01/19/17 05:00 Hypochromasia Not Reportable 01/19/17 05:00 Poikilocytosis Not Reportable 01/19/17 05:00 Anisocytosis 1+ 01/19/17 05:00 Microcytosis Not Reportable 01/19/17 05:00 Macrocytosis 1+ 01/19/17 05:00 Spherocytes Not Reportable 01/19/17 05:00 Pappenheimer Bodies Not Reportable 01/19/17 05:00 Sickle Cells Not Reportable 01/19/17 05:00 Target Cells Not Reportable 01/19/17 05:00 Tear Drop Cells Not Reportable 01/19/17 05:00 Ovalocytes Not Reportable 01/19/17 05:00 Helmet Cells Not Reportable 01/19/17 05:00 [place] Bodies Not Reportable 01/19/17 05:00 [place] Rings Not Reportable 01/19/17 05:00 [place] Cells Not Reportable 01/19/17 05:00 Bite Cells Not Reportable 01/19/17 05:00 Crenated Cell Not Reportable 01/19/17 05:00 Elliptocytes Not Reportable 01/19/17 05:00 Acanthocytes (Spur) Not Reportable 01/19/17 05:00 Rouleaux Not Reportable 01/19/17 05:00 Hemoglobin C Crystals Not Reportable 01/19/17 05:00 Schistocytes Not Reportable 01/19/17 05:00 Malaria parasites Not Reportable 01/19/17 05:00 Oscar Bodies Not Reportable 01/19/17 05:00 Hem Pathologist Commnt No 01/19/17 05:00 PT 17.2 Sec. (12.2-14.9) H 01/20/17 10:29 INR 1.41 (0.87-1.13) H 01/20/17 10:29 APTT 29.9 Sec. (24.2-36.6) 01/20/17 10:29 D-Dimer 1652.46 ng/mlDDU (0-234) H 01/18/17 14:59 POC ABG pH 7.396 (7.35-7.45) 01/20/17 11:30 POC ABG pCO2 33.2 (35-45) L 01/20/17 11:30 POC ABG pO2 72 (80-105) L 01/20/17 11:30 POC ABG HCO3 20.3 01/20/17 11:30 POC ABG Total CO2 21 01/20/17 11:30 POC ABG O2 Sat 94 01/20/17 11:30 POC ABG Base Excess -5 01/20/17 11:30 FiO2 21 % 01/20/17 11:30 Sodium 134 mmol/L (137-145) L 01/20/17 10:29 Potassium 4.6 mmol/L (3.6-5.0) 01/20/17 10:29 Chloride 96.7 mmol/L (98-107) L 01/20/17 10:29 Carbon Dioxide 20 mmol/L (22-30) L 01/20/17 10:29 Anion Gap 22 mmol/L 01/20/17 10:29 BUN 71 mg/dL (9-20) H 01/20/17 10:29 Creatinine 2.1 mg/dL (0.8-1.5) H 01/20/17 10:29 Estimated GFR 39 ml/min 01/20/17 10:29 BUN/Creatinine Ratio 33.80 % 01/20/17 10:29 Glucose 616 mg/dL (75-100) H* 01/20/17 10:29 POC Glucose 257 (70-105) H 01/18/17 21:05 Calcium 8.2 mg/dL (8.4-10.2) L 01/20/17 10:29 Total Bilirubin 1.4 mg/dL (0.1-1.2) H 01/19/17 05:00 AST 59 units/L (5-40) H 01/19/17 05:00 ALT 35 units/L (7-56) 01/19/17 05:00 Alkaline Phosphatase 499 units/L (35-129) H 01/19/17 05:00 Troponin T 0.122 ng/mL (0.00-0.029) H* 01/18/17 14:57 Total Protein 6.7 g/dL (6.3-8.2) 01/19/17 05:00 Albumin 3.3 g/dL (3.9-5) L 01/19/17 05:00 Albumin/Globulin Ratio 1.0 % 01/19/17 05:00 Triglycerides 76 mg/dL (2-149) 01/18/17 14:57 Cholesterol 117 mg/dL (50-199) 01/18/17 14:57 LDL Cholesterol Direct 58 mg/dL (50-130) 01/18/17 14:57 HDL Cholesterol 44 mg/dL (40-59) 01/18/17 14:57 Cholesterol/HDL Ratio 2.65 % 01/18/17 14:57
[2017-01-20] MEDS ORDERED: PROVENTIL IH PRN (14:36)
--- NOTE | 2017-01-20 17:31 | Progress Note ---
Assessment and Plan Patient alert,awake and eating his dinner. Patient says breathing slightly better.O2 satuaration 100% on 2 litres O2. 1/ COPD exagerbation 2. Cardiomegaly 3. CHF 4. Hypertension 5. Diabetes. 6. Peripheral edema. 7. Acute bronchitis PLAN: 1. O2 2 litres via nasal canula. 2. Albuterol/atrovent aerosol treatments q 6 hours. 3. Continue I/V solumedra. 4. Continue S/C Lovenox. 5. ABGs on room air 6. Venous doppler studies of legs. 7. PFTs as out patient. - Patient Problems (1) Acute exacerbation of chronic obstructive pulmonary disease (COPD) Current Visit: Yes Status: Acute Plan to address problem: O2 supplementation 2 litres via nasal canula. Continue Albuterol/atrovent aerosol treatments q 6 hours. Continue I/V solumedral. Patient is on I/V heparin. (2) Acute bronchitis Current Visit: Yes Status: Acute Qualifiers: Bronchitis organism: B Plan to address problem: Patient is on PO Levaquine. 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 (5) Edema Current Visit: No Status: Acute Qualifiers: Edema type: E Malnutrition edema type: M Trimester: T Plan to address problem: VENOUS DOPPLER STUDIES OF LEGS RESULTS PENDING. pATIENT IS ON i/v hEPARIN. (6) Hypertension Current Visit: No Status: Acute Qualifiers: Hypertension type: H Plan to address problem: mANAGEMENT PER PRIMARY CARE. (7) [id number] kidney injury Current Visit: Yes Status: Chronic Plan to address problem: mANAGEMENT PER NEPHROLOGY. Subjective Date of service: 01/20/17 Interval history: Patient alert,awake and eating his dinner. Patient says breathing slightly better.O2 satuaration 100% on 2 litres O2. Objective Vital Signs - 12hr 01/20/17 01/20/17 01/20/17 06:57 07:59 08:00 Temperature 97.5 F L 97.9 F Pulse Rate [ 85 Anterior Bilateral Throughout] Pulse Rate [ 80 86 From Monitor] Respiratory 20 20 Rate Respiratory 16 Rate [Anterior Bilateral Throughout] Blood Pressure 168/105 163/104 [Left Arm] O2 Sat by Pulse 94 98 95 Oximetry 01/20/17 01/20/17 01/20/17 08:12 11:30 14:32 Temperature Pulse Rate [ 84 76 Anterior Bilateral Throughout] Pulse Rate [ From Monitor] Respiratory Rate Respiratory 16 20 Rate [Anterior Bilateral Throughout] Blood Pressure [Left Arm] O2 Sat by Pulse 96 Oximetry 01/20/17 01/20/17 14:35 14:41 Temperature Pulse Rate [ 75 Anterior Bilateral Throughout] Pulse Rate [ From Monitor] Respiratory Rate Respiratory 20 Rate [Anterior Bilateral Throughout] Blood Pressure [Left Arm] O2 Sat by Pulse 100 Oximetry Constitutional: no acute distress, alert Eyes: non-icteric ENT: oropharynx moist Neck: supple, no lymphadenopathy Ascultation: Bilateral: diminished breath sounds (Prolonged expiratory phase.) Cardiovascular: regular rate and rhythm Gastrointestinal: normoactive bowel sounds, soft, non-tender Integumentary: normal Extremities: no cyanosis, edema Neurologic: normal mental status, non-focal exam, pupils equal and round, CN II- XII normal Psychiatric: mood appropriate CBC and BMP: 01/20/17 10:29 01/20/17 10:29 ABG, PT/INR, D-dimer: ABG POC ABG pH 7.396 (7.35-7.45) 01/20/17 11:30 POC ABG pCO2 33.2 (35-45) L 01/20/17 11:30 POC ABG pO2 72 (80-105) L 01/20/17 11:30 POC ABG HCO3 20.3 01/20/17 11:30 POC ABG Total CO2 21 01/20/17 11:30 POC ABG O2 Sat 94 01/20/17 11:30 PT/INR, D-dimer PT 17.2 Sec. (12.2-14.9) H 01/20/17 10:29 INR 1.41 (0.87-1.13) H 01/20/17 10:29 D-Dimer 1652.46 ng/mlDDU (0-234) H 01/18/17 14:59 Abnormal lab findings: Abnormal Labs 01/18/17 01/19/17 01/19/17 21:05 05:00 05:00 Hgb 10.7 L Hct 34.6 L MCH 27 L MCHC 31 L RDW 21.7 H Plt Count 112 L Seg Neuts % (Manual) 99.0 H Lymphocytes % (Manual) 1.0 L Nucleated RBC % 2.0 H Lymphocytes # (Manual) 0.1 L PT INR POC ABG pCO2 POC ABG pO2 Sodium Chloride Carbon Dioxide 20 L BUN 71 H Creatinine 2.2 H Glucose 354 H POC Glucose 257 H Calcium Total Bilirubin 1.4 H AST 59 H Alkaline Phosphatase 499 H Albumin 3.3 L 01/20/17 01/20/17 01/20/17 10:29 10:29 10:29 Hgb 10.5 L Hct 34.5 L MCH MCHC RDW Plt Count 90 L Seg Neuts % (Manual) Lymphocytes % (Manual) Nucleated RBC % Lymphocytes # (Manual) PT 17.2 H INR 1.41 H POC ABG pCO2 POC ABG pO2 Sodium 134 L Chloride 96.7 L Carbon Dioxide 20 L BUN 71 H Creatinine 2.1 H Glucose 616 H* POC Glucose Calcium 8.2 L Total Bilirubin AST Alkaline Phosphatase Albumin 01/20/17 11:30 Hgb Hct MCH MCHC RDW Plt Count Seg Neuts % (Manual) Lymphocytes % (Manual) Nucleated RBC % Lymphocytes # (Manual) PT INR POC ABG pCO2 33.2 L POC ABG pO2 72 L Sodium Chloride Carbon Dioxide BUN Creatinine Glucose POC Glucose Calcium Total Bilirubin AST Alkaline Phosphatase Albumin Prior PFT's, U/S of legs: pending
[2017-01-20] MEDS: BABY ASPIRIN PO SCH (18:33)
[2017-01-20] MEDS: APRESOLINE PO SCH ×2 (18:33→22:26)
[2017-01-20] MEDS: NEURONTIN PO SCH ×2 (18:33→22:28)
[2017-01-20] MEDS ORDERED: INSULIN GLARGINE 25 UNIT SUB-Q SCH (22:00)
[2017-01-20] MEDS: LEVEMIR SUB-Q SCH (22:26)
[2017-01-21] MEDS: HEPARIN/ 0.45% NACL-25,000 UNIT/500 ML 25,000 UNIT/500 ML BAG IV SCH ×2 (01:30→18:09)
[2017-01-21] MEDS: NEURONTIN PO SCH ×3 (06:36→22:49)
[2017-01-21] MEDS: APRESOLINE PO SCH ×3 (06:37→22:49)
[2017-01-21] MEDS: DUONEB 0.5 MG-3 MG/3 ML SOLN IH SCH ×3 (09:14→19:58)
[2017-01-21] MEDS: IMDUR PO SCH (11:03)
[2017-01-21] MEDS: COREG PO SCH ×2 (11:04→22:49)
[2017-01-21] MEDS: BABY ASPIRIN PO SCH (11:04)
[2017-01-21] MEDS: COZAAR PO SCH (11:05)
[2017-01-21] MEDS: BUMEX PO SCH (11:05)
[2017-01-21 12:02] LABS: BUN/Creatinine Ratio 32.6; Potassium 4.1 mmol/L (3.6-5.0)
--- NOTE | 2017-01-21 17:27 | Progress Note ---
Assessment and Plan Assessment and plan: (1) Acute exacerbation of chronic obstructive pulmonary disease (COPD) Current Visit: Yes Status: Acute Plan to address problem: cont duo nebs every 6 hrs [id number] and every 3 hrs prn and IV Levaquin 750 every 24 hours IV Solu-Medrol with tappering dose (2) Acute on chronic systolic heart failure Current Visit: Yes Status: Acute Plan to address problem: cont Bumex change to IV, monitor renal function Ef 40 to 45% (3) Elevated d-dimer Current Visit: Yes Status: Acute Plan to address problem: intermediate probability for PE on VQ scan will cont on heparin drip Cannot get CT of chest for worsening renal function will defer to pulmonary for further recommendation (4) Accelerated hypertension Current Visit: No Status: Acute Plan to address problem: Adjust BP meds as needed, better control now. (5) elevated troponin Current Visit: No Status: Acute Could be due to CHF exacerbation with worsening renal function (6)CKD stage 3 Current Visit: No Status: chronic Plan to address problem: We'll monitor renal function carefully Avoid any nephrotoxins He continued to get worse we'll consult nephrology his baseline creatinine is 2.1 to 2.3 (7) Diabetes mellitus Current Visit: No Status: Chronic Qualifiers: Diabetes mellitus type: type 2 Diabetes mellitus complication status: with hypoglycemia Diabetes mellitus complication detail: without coma Diabetic retinopathy severity: D Proliferative retinopathy type: P Diabetes mellitus macular edema: D Diabetes mellitus detention insulin use: D Laterality: L Chronic kidney disease stage: C Plan to address problem: Lantus 25 units sq and SSI coverage Blood glucose better controlled this morning will cont to cihp steroid History Interval history: Patient seen and examined. Medical records and medication list reviewed. No acute event overnight noted by the RN. Patient c/o exertional difficulty breathing. Patient is tolerating diet. Still has significant b/l LE swelling. Discussed plan of care at bedside with patient. Hospitalist Physical - Physical exam Narrative exam: GENERAL: Elderly AAM lying on bed appeared to be in no discomfort. HEENT: Normocephalic. Atraumatic. No conjunctival congestion or icterus. Patient has moist mucous membranes. NECK: Supple. Trachea midline. CHEST/LUNGS: decrease BS auscultated bilaterally, breathing nonlabored. few bibasilar crackles. HEART/CARDIOVASCULAR: Regular in rate and rhythm. S1 and S2 positive. ABDOMEN: Abdomen is soft, nontender. Patient has normal bowel sounds. SKIN: There is no rash. Warm and dry. NEURO: No focal motor deficit. Follows command. MUSCULOSKELETAL: No joint effusion or tenderness. EXTRIMITY: 3+ edema, no cyanosis or clubbing. PSYCH: Cooperative. - Constitutional Vitals: Temp Pulse Resp BP Pulse Ox 97.6 F 80 18 160/83 96 01/21/17 17:22 01/21/17 17:22 01/21/17 17:22 01/21/17 17:22 01/21/17 17:22 General appearance: Present: no acute distress, well-nourished Results - Labs CBC & Chem 7: 01/20/17 10:29 01/21/17 10:49 Labs: Laboratory Last Values WBC 5.1 K/mm3 (4.5-11.0) 01/19/17 05:00 RBC 4.05 M/mm3 (3.65-5.03) 01/19/17 05:00 Hgb 10.5 gm/dl (11.8-15.2) L 01/20/17 10:29 Hct 34.5 % (35.5-45.6) L 01/20/17 10:29 MCV 85 fl (84-94) 01/19/17 05:00 MCH 27 pg (28-32) L 01/19/17 05:00 MCHC 31 % (32-34) L 01/19/17 05:00 RDW 21.7 % (13.2-15.2) H 01/19/17 05:00 Plt Count 90 K/mm3 (140-440) L 01/20/17 10:29 Lymph % (Auto) 9.2 % (13.4-35.0) L 01/18/17 14:57 [place] % (Auto) 6.5 % (0.0-7.3) 01/18/17 14:57 Eos % (Auto) 0.4 % (0.0-4.3) 01/18/17 14:57 Baso % (Auto) 0.5 % (0.0-1.8) 01/18/17 14:57 Lymph # 0.4 K/mm3 (1.2-5.4) L 01/18/17 14:57 [place] # 0.3 K/mm3 (0.0-0.8) 01/18/17 14:57 Eos # 0.0 K/mm3 (0.0-0.4) 01/18/17 14:57 Baso # 0.0 K/mm3 (0.0-0.1) 01/18/17 14:57 Add Manual Diff Complete 01/19/17 05:00 Total Counted 100 01/19/17 05:00 Seg Neutrophils % Field Trainer 01/19/17 05:00 Seg Neuts % (Manual) 99.0 % (40.0-70.0) H 01/19/17 05:00 Band Neutrophils % 0 % 01/19/17 05:00 Lymphocytes % (Manual) 1.0 % (13.4-35.0) L 01/19/17 05:00 Reactive Lymphs % (Man) 0 % 01/19/17 05:00 Monocytes % (Manual) 0 % (0.0-7.3) 01/19/17 05:00 Eosinophils % (Manual) 0 % (0.0-4.3) 01/19/17 05:00 Basophils % (Manual) 0 % (0.0-1.8) 01/19/17 05:00 Metamyelocytes % 0 % 01/19/17 05:00 Myelocytes % 0 % 01/19/17 05:00 Promyelocytes % 0 % 01/19/17 05:00 Blast Cells % 0 % 01/19/17 05:00 Nucleated RBC % 2.0 % (0.0-0.9) H 01/19/17 05:00 Seg Neutrophils # 3.7 K/mm3 (1.8-7.7) 01/18/17 14:57 Seg Neutrophils # Man 5.0 K/mm3 (1.8-7.7) 01/19/17 05:00 Band Neutrophils # 0.0 K/mm3 01/19/17 05:00 Lymphocytes # (Manual) 0.1 K/mm3 (1.2-5.4) L 01/19/17 05:00 Abs React Lymphs (Man) 0.0 K/mm3 01/19/17 05:00 Monocytes # (Manual) 0.0 K/mm3 (0.0-0.8) 01/19/17 05:00 Eosinophils # (Manual) 0.0 K/mm3 (0.0-0.4) 01/19/17 05:00 Basophils # (Manual) 0.0 K/mm3 (0.0-0.1) 01/19/17 05:00 Metamyelocytes # 0.0 K/mm3 01/19/17 05:00 Myelocytes # 0.0 K/mm3 01/19/17 05:00 Promyelocytes # 0.0 K/mm3 01/19/17 05:00 Blast Cells # 0.0 K/mm3 01/19/17 05:00 WBC Morphology Not Reportable 01/19/17 05:00 Hypersegmented Neuts Not Reportable 01/19/17 05:00 Hyposegmented Neuts Not Reportable 01/19/17 05:00 Hypogranular Neuts Not Reportable 01/19/17 05:00 Smudge Cells Few 01/19/17 05:00 Toxic Granulation Not Reportable 01/19/17 05:00 Toxic Vacuolation Not Reportable 01/19/17 05:00 Dohle Bodies Not Reportable 01/19/17 05:00 Pelger-Huet Anomaly Not Reportable 01/19/17 05:00 Alvaro Rods Not Reportable 01/19/17 05:00 Platelet Estimate Appears decreased 01/19/17 05:00 Clumped Platelets Not Reportable 01/19/17 05:00 Plt Clumps, EDTA Not Reportable 01/19/17 05:00 Large Platelets Not Reportable 01/19/17 05:00 Giant Platelets Not Reportable 01/19/17 05:00 Platelet Satelliting Not Reportable 01/19/17 05:00 Plt Morphology Comment Not Reportable 01/19/17 05:00 RBC Morphology Not Reportable 01/19/17 05:00 Dimorphic RBCs Not Reportable 01/19/17 05:00 Polychromasia Not Reportable 01/19/17 05:00 Hypochromasia Not Reportable 01/19/17 05:00 Poikilocytosis Not Reportable 01/19/17 05:00 Anisocytosis 1+ 01/19/17 05:00 Microcytosis Not Reportable 01/19/17 05:00 Macrocytosis 1+ 01/19/17 05:00 Spherocytes Not Reportable 01/19/17 05:00 Pappenheimer Bodies Not Reportable 01/19/17 05:00 Sickle Cells Not Reportable 01/19/17 05:00 Target Cells Not Reportable 01/19/17 05:00 Tear Drop Cells Not Reportable 01/19/17 05:00 Ovalocytes Not Reportable 01/19/17 05:00 Helmet Cells Not Reportable 01/19/17 05:00 Garcia-[place] Bodies Not Reportable 01/19/17 05:00 [place] Rings Not Reportable 01/19/17 05:00 Silvia Cells Not Reportable 01/19/17 05:00 Bite Cells Not Reportable 01/19/17 05:00 Crenated Cell Not Reportable 01/19/17 05:00 Elliptocytes Not Reportable 01/19/17 05:00 Acanthocytes (Spur) Not Reportable 01/19/17 05:00 Rouleaux Not Reportable 01/19/17 05:00 Hemoglobin C Crystals Not Reportable 01/19/17 05:00 Schistocytes Not Reportable 01/19/17 05:00 Malaria parasites Not Reportable 01/19/17 05:00 Oscar Bodies Not Reportable 01/19/17 05:00 Hem Pathologist Commnt No 01/19/17 05:00 PT 17.2 Sec. (12.2-14.9) H 01/20/17 10:29 INR 1.41 (0.87-1.13) H 01/20/17 10:29 APTT 29.9 Sec. (24.2-36.6) 01/20/17 10:29 D-Dimer 1652.46 ng/mlDDU (0-234) H 01/18/17 14:59 Heparin Anti-Xa Level 0.65 U.I./ml (0.3-0.7) 01/21/17 16:03 POC ABG pH 7.396 (7.35-7.45) 01/20/17 11:30 POC ABG pCO2 33.2 (35-45) L 01/20/17 11:30 POC ABG pO2 72 (80-105) L 01/20/17 11:30 POC ABG HCO3 20.3 01/20/17 11:30 POC ABG Total CO2 21 01/20/17 11:30 POC ABG O2 Sat 94 01/20/17 11:30 POC ABG Base Excess -5 01/20/17 11:30 FiO2 21 % 01/20/17 11:30 Sodium 137 mmol/L (137-145) 01/21/17 10:49 Potassium 4.1 mmol/L (3.6-5.0) 01/21/17 10:49 Chloride 99.0 mmol/L (98-107) 01/21/17 10:49 Carbon Dioxide 24 mmol/L (22-30) 01/21/17 10:49 Anion Gap 18 mmol/L 01/21/17 10:49 BUN 75 mg/dL (9-20) H 01/21/17 10:49 Creatinine 2.3 mg/dL (0.8-1.5) H 01/21/17 10:49 Estimated GFR 35 ml/min 01/21/17 10:49 BUN/Creatinine Ratio 32.60 % 01/21/17 10:49 Glucose 131 mg/dL (75-100) H 01/21/17 10:49 POC Glucose 148 (70-105) H 01/21/17 11:58 Calcium 8.0 mg/dL (8.4-10.2) L 01/21/17 10:49 Total Bilirubin 1.4 mg/dL (0.1-1.2) H 01/19/17 05:00 AST 59 units/L (5-40) H 01/19/17 05:00 ALT 35 units/L (7-56) 01/19/17 05:00 Alkaline Phosphatase 499 units/L (35-129) H 01/19/17 05:00 Troponin T 0.122 ng/mL (0.00-0.029) H* 01/18/17 14:57 Total Protein 6.7 g/dL (6.3-8.2) 01/19/17 05:00 Albumin 3.3 g/dL (3.9-5) L 01/19/17 05:00 Albumin/Globulin Ratio 1.0 % 01/19/17 05:00 Triglycerides 76 mg/dL (2-149) 01/18/17 14:57 Cholesterol 117 mg/dL (50-199) 01/18/17 14:57 LDL Cholesterol Direct 58 mg/dL (50-130) 01/18/17 14:57 HDL Cholesterol 44 mg/dL (40-59) 01/18/17 14:57 Cholesterol/HDL Ratio 2.65 % 01/18/17 14:57
[2017-01-21] MEDS: BUMEX IV SCH (17:36)
--- NOTE | 2017-01-21 20:31 | Progress Note ---
Assessment and Plan Patient alert,awake. Patient says breathing better.O2 satuaration 93% on 2 litres O2.. - Patient Problems (1) Acute exacerbation of chronic obstructive pulmonary disease (COPD) Current Visit: Yes Status: Acute Plan to address problem: O2 supplementation 2 litres via nasal canula. Continue Albuterol/atrovent aerosol treatments q 6 hours. Continue I/V solumedral.But taper solumedral.to 20 mg I/V qd. Patient is on I/V heparin. (2) Acute bronchitis Current Visit: Yes Status: Acute Qualifiers: Bronchitis organism: B Plan to address problem: Patient is on PO Levaquine. 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 (5) Edema Current Visit: No Status: Acute Qualifiers: Edema type: E Malnutrition edema type: M Trimester: T Plan to address problem: VENOUS DOPPLER STUDIES OF LEGS reported no acute or chronic DVT. (6) Hypertension Current Visit: No Status: Acute Qualifiers: Hypertension type: H Plan to address problem: mANAGEMENT PER PRIMARY CARE. (7) [id number] kidney injury Current Visit: Yes Status: Chronic Plan to address problem: mANAGEMENT PER NEPHROLOGY. Subjective Date of service: 01/21/17 Interval history: Patient alert,awake. Patient says breathing better.O2 satuaration 93% on 2 litres O2. Objective Vital Signs - 12hr 01/21/17 01/21/17 01/21/17 09:14 09:30 11:03 Temperature 98.5 F Pulse Rate 77 Pulse Rate [ Anterior Bilateral Throughout] Pulse Rate [ 77 From Monitor] Pulse Rate [ Posterior Bilateral Throughout] Respiratory 18 Rate Respiratory Rate [Anterior Bilateral Throughout] Respiratory Rate [Posterior Bilateral Throughout] Blood Pressure 144/87 Blood Pressure 144/87 [Left Arm] O2 Sat by Pulse 97 94 Oximetry 01/21/17 01/21/17 01/21/17 11:04 11:05 12:00 Temperature Pulse Rate 77 77 80 Pulse Rate [ Anterior Bilateral Throughout] Pulse Rate [ From Monitor] Pulse Rate [ Posterior Bilateral Throughout] Respiratory Rate Respiratory Rate [Anterior Bilateral Throughout] Respiratory Rate [Posterior Bilateral Throughout] Blood Pressure 144/87 144/87 Blood Pressure [Left Arm] O2 Sat by Pulse Oximetry 01/21/17 01/21/17 01/21/17 14:14 14:17 14:24 Temperature Pulse Rate 78 Pulse Rate [ Anterior Bilateral Throughout] Pulse Rate [ From Monitor] Pulse Rate [ 77 77 Posterior Bilateral Throughout] Respiratory Rate Respiratory Rate [Anterior Bilateral Throughout] Respiratory 20 20 Rate [Posterior Bilateral Throughout] Blood Pressure 153/72 Blood Pressure [Left Arm] O2 Sat by Pulse Oximetry 01/21/17 01/21/17 01/21/17 17:22 19:59 20:13 Temperature 97.6 F Pulse Rate Pulse Rate [ 80 83 Anterior Bilateral Throughout] Pulse Rate [ 80 From Monitor] Pulse Rate [ Posterior Bilateral Throughout] Respiratory 18 Rate Respiratory 20 20 Rate [Anterior Bilateral Throughout] Respiratory Rate [Posterior Bilateral Throughout] Blood Pressure Blood Pressure 160/83 [Left Arm] O2 Sat by Pulse 96 Oximetry Constitutional: no acute distress, alert Eyes: non-icteric ENT: oropharynx moist Neck: supple, no lymphadenopathy Ascultation: Bilateral: diminished breath sounds (Prolonged expiratory phase.) Cardiovascular: regular rate and rhythm Gastrointestinal: normoactive bowel sounds, soft, non-tender Integumentary: normal Extremities: no cyanosis, edema Neurologic: normal mental status, non-focal exam, pupils equal and round, CN II- XII normal Psychiatric: mood appropriate CBC and BMP: 01/20/17 10:29 01/21/17 10:49 ABG, PT/INR, D-dimer: ABG POC ABG pH 7.396 (7.35-7.45) 01/20/17 11:30 POC ABG pCO2 33.2 (35-45) L 01/20/17 11:30 POC ABG pO2 72 (80-105) L 01/20/17 11:30 POC ABG HCO3 20.3 01/20/17 11:30 POC ABG Total CO2 21 01/20/17 11:30 POC ABG O2 Sat 94 01/20/17 11:30 PT/INR, D-dimer PT 17.2 Sec. (12.2-14.9) H 01/20/17 10:29 INR 1.41 (0.87-1.13) H 01/20/17 10:29 D-Dimer 1652.46 ng/mlDDU (0-234) H 01/18/17 14:59 Abnormal lab findings: Abnormal Labs 01/18/17 01/19/17 01/19/17 21:05 05:00 05:00 Hgb 10.7 L Hct 34.6 L MCH 27 L MCHC 31 L RDW 21.7 H Plt Count 112 L Seg Neuts % (Manual) 99.0 H Lymphocytes % (Manual) 1.0 L Nucleated RBC % 2.0 H Lymphocytes # (Manual) 0.1 L PT INR POC ABG pCO2 POC ABG pO2 Sodium Chloride Carbon Dioxide 20 L BUN 71 H Creatinine 2.2 H Glucose 354 H POC Glucose 257 H Calcium Total Bilirubin 1.4 H AST 59 H Alkaline Phosphatase 499 H Albumin 3.3 L 01/20/17 01/20/17 01/20/17 08:20 10:29 10:29 Hgb 10.5 L Hct 34.5 L MCH MCHC RDW Plt Count 90 L Seg Neuts % (Manual) Lymphocytes % (Manual) Nucleated RBC % Lymphocytes # (Manual) PT INR POC ABG pCO2 POC ABG pO2 Sodium 134 L Chloride 96.7 L Carbon Dioxide 20 L BUN 71 H Creatinine 2.1 H Glucose 616 H* POC Glucose > 500 H Calcium 8.2 L Total Bilirubin AST Alkaline Phosphatase Albumin 01/20/17 01/20/17 01/20/17 10:29 11:22 11:30 Hgb Hct MCH MCHC RDW Plt Count Seg Neuts % (Manual) Lymphocytes % (Manual) Nucleated RBC % Lymphocytes # (Manual) PT 17.2 H INR 1.41 H POC ABG pCO2 33.2 L POC ABG pO2 72 L Sodium Chloride Carbon Dioxide BUN Creatinine Glucose POC Glucose 461 H Calcium Total Bilirubin AST Alkaline Phosphatase Albumin 01/20/17 01/21/17 01/21/17 21:47 08:15 10:49 Hgb Hct MCH MCHC RDW Plt Count Seg Neuts % (Manual) Lymphocytes % (Manual) Nucleated RBC % Lymphocytes # (Manual) PT INR POC ABG pCO2 POC ABG pO2 Sodium Chloride Carbon Dioxide BUN 75 H Creatinine 2.3 H Glucose 131 H POC Glucose 177 H 42 L Calcium 8.0 L Total Bilirubin AST Alkaline Phosphatase Albumin 01/21/17 01/21/17 11:58 16:27 Hgb Hct MCH MCHC RDW Plt Count Seg Neuts % (Manual) Lymphocytes % (Manual) Nucleated RBC % Lymphocytes # (Manual) PT INR POC ABG pCO2 POC ABG pO2 Sodium Chloride Carbon Dioxide BUN Creatinine Glucose POC Glucose 148 H 363 H Calcium Total Bilirubin AST Alkaline Phosphatase Albumin
[2017-01-21] MEDS: LEVEMIR SUB-Q SCH (22:50)
[2017-01-22] MEDS: NEURONTIN PO SCH ×3 (06:06→21:32)
[2017-01-22] MEDS: APRESOLINE PO SCH ×3 (06:06→21:31)
[2017-01-22] MEDS: BUMEX IV SCH ×2 (06:10→18:16)
[2017-01-22 07:21] LABS: Hematocrit 28.3 % (35.5-45.6)
[2017-01-22 07:30] LABS: Albumin 3.1 g/dL (3.9-5); Albumin/Globulin Ratio 1.1 %; BUN/Creatinine Ratio 36.19; Bilirubin,Total 0.9 mg/dL (0.1-1.2); Calcium 8.2 mg/dL (8.4-10.2); Total Protein 5.8 g/dL (6.3-8.2)
[2017-01-22 07:32] LABS: INR 1.4 (0.87-1.13)
[2017-01-22] MEDS: DUONEB 0.5 MG-3 MG/3 ML SOLN IH SCH ×3 (07:55→20:04)
[2017-01-22 08:07] LABS: Partial Thromboplastin Time 69.4 Sec. (24.2-36.6)
--- NOTE | 2017-01-22 11:17 | Progress Note ---
Assessment and Plan - Patient Problems (1) Acute chest pain Current Visit: Yes Status: Acute Plan to address problem: - resolved - complete ACS w/up - VTE w/up negative so far (2) Acute exacerbation of chronic obstructive pulmonary disease (COPD) Current Visit: Yes Status: Acute Plan to address problem: - continue bronchodilators and pulmonary toilet - continue supplemental oxygen tokeep O2 Sats > 92% - treat CHF - prn BIPAP - empiric CAP AB's (3) Chronic kidney disease, stage III (moderate) Current Visit: No Status: Acute Plan to address problem: - per nephrology - will hold on CTA re: azotemia (4) Pulmonary HTN Current Visit: No Status: Chronic Plan to address problem: - treat CHF - prevent hypoxemia - outpatient Pulm HTN work-up Subjective Date of service: 01/22/17 Principal diagnosis: Acute Hypoxemic Respiratory Failure; Acute COPD exacerbation Interval history: Seen and examined at bedside; 24 hour events reviewed; nursing and respiratory care staff consulted; no adverse overnight events reported to me; resting in bed ; denies acute chest pains or increased SOB; denies any hemoptysis; No N/V/F/C Objective Vital Signs - 12hr 01/22/17 01/22/17 01/22/17 00:15 04:15 06:06 Temperature 98.1 F 97.6 F Pulse Rate 76 Pulse Rate [ Anterior Bilateral Throughout] Pulse Rate [ 80 76 From Monitor] Respiratory 18 20 Rate Respiratory Rate [Anterior Bilateral Throughout] Blood Pressure 138/63 Blood Pressure 147/64 138/63 [Left Arm] O2 Sat by Pulse 98 97 Oximetry 01/22/17 01/22/17 01/22/17 07:55 08:00 08:05 Temperature 97.6 F Pulse Rate Pulse Rate [ 77 75 Anterior Bilateral Throughout] Pulse Rate [ 74 From Monitor] Respiratory 18 Rate Respiratory 20 20 Rate [Anterior Bilateral Throughout] Blood Pressure Blood Pressure 137/78 [Left Arm] O2 Sat by Pulse 97 Oximetry Constitutional: no acute distress, alert Eyes: non-icteric ENT: oropharynx moist Neck: supple, no lymphadenopathy Effort: normal Ascultation: Bilateral: clear, diminished breath sounds (Prolonged expiratory phase.) Cardiovascular: regular rate and rhythm Gastrointestinal: normoactive bowel sounds, soft, non-tender Integumentary: normal Extremities: no cyanosis, no edema, pulses normal, no ischemia or petechiae Neurologic: normal mental status, non-focal exam, pupils equal and round, CN II- XII normal Psychiatric: mood appropriate, affect normal CBC and BMP: 01/25/17 05:29 01/25/17 05:29 ABG, PT/INR, D-dimer: ABG POC ABG pH 7.396 (7.35-7.45) 01/20/17 11:30 POC ABG pCO2 33.2 (35-45) L 01/20/17 11:30 POC ABG pO2 72 (80-105) L 01/20/17 11:30 POC ABG HCO3 20.3 01/20/17 11:30 POC ABG Total CO2 21 01/20/17 11:30 POC ABG O2 Sat 94 01/20/17 11:30 PT/INR, D-dimer PT 17.1 Sec. (12.2-14.9) H 01/22/17 05:57 INR 1.40 (0.87-1.13) H 01/22/17 05:57 D-Dimer 1652.46 ng/mlDDU (0-234) H 01/18/17 14:59 Abnormal lab findings: Abnormal Labs 01/18/17 01/19/17 01/19/17 21:05 05:00 05:00 Hgb 10.7 L Hct 34.6 L MCH 27 L MCHC 31 L RDW 21.7 H Plt Count 112 L Seg Neuts % (Manual) 99.0 H Lymphocytes % (Manual) 1.0 L Nucleated RBC % 2.0 H Lymphocytes # (Manual) 0.1 L PT INR APTT POC ABG pCO2 POC ABG pO2 Sodium Chloride Carbon Dioxide 20 L BUN 71 H Creatinine 2.2 H Glucose 354 H POC Glucose 257 H Calcium Total Bilirubin 1.4 H AST 59 H Alkaline Phosphatase 499 H Total Protein Albumin 3.3 L 01/20/17 01/20/17 01/20/17 08:20 10:29 10:29 Hgb 10.5 L Hct 34.5 L MCH MCHC RDW Plt Count 90 L Seg Neuts % (Manual) Lymphocytes % (Manual) Nucleated RBC % Lymphocytes # (Manual) PT INR APTT POC ABG pCO2 POC ABG pO2 Sodium 134 L Chloride 96.7 L Carbon Dioxide 20 L BUN 71 H Creatinine 2.1 H Glucose 616 H* POC Glucose > 500 H Calcium 8.2 L Total Bilirubin AST Alkaline Phosphatase Total Protein Albumin 01/20/17 01/20/17 01/20/17 10:29 11:22 11:30 Hgb Hct MCH MCHC RDW Plt Count Seg Neuts % (Manual) Lymphocytes % (Manual) Nucleated RBC % Lymphocytes # (Manual) PT 17.2 H INR 1.41 H APTT POC ABG pCO2 33.2 L POC ABG pO2 72 L Sodium Chloride Carbon Dioxide BUN Creatinine Glucose POC Glucose 461 H Calcium Total Bilirubin AST Alkaline Phosphatase Total Protein Albumin 01/20/17 01/21/17 01/21/17 21:47 08:15 10:49 Hgb Hct MCH MCHC RDW Plt Count Seg Neuts % (Manual) Lymphocytes % (Manual) Nucleated RBC % Lymphocytes # (Manual) PT INR APTT POC ABG pCO2 POC ABG pO2 Sodium Chloride Carbon Dioxide BUN 75 H Creatinine 2.3 H Glucose 131 H POC Glucose 177 H 42 L Calcium 8.0 L Total Bilirubin AST Alkaline Phosphatase Total Protein Albumin 01/21/17 01/21/17 01/21/17 11:58 16:27 21:05 Hgb Hct MCH MCHC RDW Plt Count Seg Neuts % (Manual) Lymphocytes % (Manual) Nucleated RBC % Lymphocytes # (Manual) PT INR APTT POC ABG pCO2 POC ABG pO2 Sodium Chloride Carbon Dioxide BUN Creatinine Glucose POC Glucose 148 H 363 H 357 H Calcium Total Bilirubin AST Alkaline Phosphatase Total Protein Albumin 01/22/17 01/22/17 01/22/17 05:57 05:57 05:57 Hgb 9.0 L Hct 28.3 L D MCH MCHC RDW Plt Count 81 L Seg Neuts % (Manual) Lymphocytes % (Manual) Nucleated RBC % Lymphocytes # (Manual) PT 17.1 H INR 1.40 H APTT 69.4 H* POC ABG pCO2 POC ABG pO2 Sodium 136 L Chloride Carbon Dioxide BUN 76 H Creatinine 2.1 H Glucose 201 H POC Glucose Calcium 8.2 L Total Bilirubin AST Alkaline Phosphatase 346 H Total Protein 5.8 L Albumin 3.1 L Chest x-ray: image reviewed
[2017-01-22] MEDS ORDERED: D50W (25GM) IV ONE (12:07)
[2017-01-22] MEDS: BABY ASPIRIN PO SCH (12:40)
[2017-01-22 12:42] LABS: Total Protein,Body Fluid 3.2 (15.0-45.0)
[2017-01-22 12:43] LABS: LDH,Body Fluid 180
--- NOTE | 2017-01-22 12:47 | Cat Scan Report ---
CT-guided paracentesis. Procedure and findings: The study was performed after an unsuccessful attempt at ultrasound guided paracentesis. The patient's skin surface overlying the right lateral abdomen was prepped and draped using sterile technique. Local anesthetic was injected into the skin. Using CT guidance, a 5 [place] Yueh catheter was inserted into the fluid collection in the right upper quadrant. 1500 cc of serosanguineous fluid was aspirated, an appropriate sample sent to the laboratory. The patient tolerated the procedure well clinically and was sent to the floor as an inpatient in satisfactory condition.
[2017-01-22] MEDS: LEVAQUIN PO SCH (12:58)
[2017-01-22] MEDS: COREG PO SCH ×2 (12:58→21:32)
[2017-01-22] MEDS: IMDUR PO SCH (12:59)
[2017-01-22] MEDS: COZAAR PO SCH (13:11)
--- NOTE | 2017-01-22 13:13 | Ultrasound Report ---
Ultrasound-guided paracentesis. Procedure: Initial survey examination of all 4 quadrants demonstrated moderate ascites. The optimal fluid collection in the right upper quadrant was identified. Using sonographic guidance, a 5 [place] Yueh catheter was inserted. A few cc of serosanguineous ascitic fluid was aspirated, but because of the proximity to the inferior margin of the liver, the procedure was terminated and the patient was transferred to the CT suite where the procedure was completed.
--- NOTE | 2017-01-22 15:51 | Progress Note ---
Assessment and Plan Assessment and plan: (1) Acute exacerbation of chronic obstructive pulmonary disease (COPD) Current Visit: Yes Status: Acute Plan to address problem: cont duo nebs every 6 hrs [id number] and every 3 hrs prn and IV Levaquin IV Solu-Medrol 40 mg q24h (2) Acute on chronic systolic heart failure Current Visit: Yes Status: Acute Plan to address problem: cont Bumex IV, monitor renal function Ef 40 to 45% (3) Elevated d-dimer Current Visit: Yes Status: Acute Plan to address problem: intermediate probability for PE on VQ scan Cannot get CT of chest for worsening renal function discussed pulmonary for further recommendation LE doppler was negative for DVT pulmonary recommended to stop heparin and to monitor clinically ABG tomorrow (4) Accelerated hypertension Current Visit: No Status: Acute Plan to address problem: Adjust BP meds as needed, better control now. (5) elevated troponin Current Visit: No Status: Acute Could be due to CHF exacerbation with worsening renal function (6)CKD stage 3 Current Visit: No Status: chronic Plan to address problem: We'll monitor renal function carefully Avoid any nephrotoxins He continued to get worse we'll consult nephrology his baseline creatinine is 2.1 to 2.3 (7) Diabetes mellitus Current Visit: No Status: Chronic Qualifiers: Diabetes mellitus type: type 2 Diabetes mellitus complication status: with hypoglycemia Diabetes mellitus complication detail: without coma Diabetic retinopathy severity: D Proliferative retinopathy type: P Diabetes mellitus macular edema: D Diabetes mellitus residential insulin use: D Laterality: L Chronic kidney disease stage: C Plan to address problem: increase Lantus to 35 units sq and SSI coverage Blood glucose uncontrolled likely due to steroid will cont to chip steroid (8) Ascitis Current Visit: No Status: Acute could be due to CHF will get LFT and hepatitis pannel image guided paracenthesis today History Interval history: Patient seen and examined. Medical records and medication list reviewed. No acute event overnight noted by the RN. Patient c/o exertional difficulty breathing. Patient is tolerating diet. Still has significant b/l LE swelling. Discussed plan of care at bedside with patient. Hospitalist Physical - Physical exam Narrative exam: GENERAL: Elderly AAM lying on bed appeared to be in no discomfort. HEENT: Normocephalic. Atraumatic. No conjunctival congestion or icterus. Patient has moist mucous membranes. NECK: Supple. Trachea midline. CHEST/LUNGS: decrease BS auscultated bilaterally, breathing nonlabored. few bibasilar crackles. HEART/CARDIOVASCULAR: Regular in rate and rhythm. S1 and S2 positive. ABDOMEN: Abdomen is soft, nontender. Patient has normal bowel sounds. SKIN: There is no rash. Warm and dry. NEURO: No focal motor deficit. Follows command. MUSCULOSKELETAL: No joint effusion or tenderness. EXTRIMITY: 3+ edema, no cyanosis or clubbing. PSYCH: Cooperative. - Constitutional Vitals: Temp Pulse Resp BP Pulse Ox 97.6 F 80 20 155/84 97 01/22/17 08:00 01/22/17 13:23 01/22/17 13:23 01/22/17 13:11 01/22/17 08:00 General appearance: Present: no acute distress, well-nourished Results - Labs CBC & Chem 7: 01/22/17 05:57 01/23/17 04:13 Labs: Laboratory Last Values WBC 5.1 K/mm3 (4.5-11.0) 01/19/17 05:00 RBC 4.05 M/mm3 (3.65-5.03) 01/19/17 05:00 Hgb 9.0 gm/dl (11.8-15.2) L 01/22/17 05:57 Hct 28.3 % (35.5-45.6) L D 01/22/17 05:57 MCV 85 fl (84-94) 01/19/17 05:00 MCH 27 pg (28-32) L 01/19/17 05:00 MCHC 31 % (32-34) L 01/19/17 05:00 RDW 21.7 % (13.2-15.2) H 01/19/17 05:00 Plt Count 81 K/mm3 (140-440) L 01/22/17 05:57 Lymph % (Auto) 9.2 % (13.4-35.0) L 01/18/17 14:57 Stephens % (Auto) 6.5 % (0.0-7.3) 01/18/17 14:57 Eos % (Auto) 0.4 % (0.0-4.3) 01/18/17 14:57 Baso % (Auto) 0.5 % (0.0-1.8) 01/18/17 14:57 Lymph # 0.4 K/mm3 (1.2-5.4) L 01/18/17 14:57 Stephens # 0.3 K/mm3 (0.0-0.8) 01/18/17 14:57 Eos # 0.0 K/mm3 (0.0-0.4) 01/18/17 14:57 Baso # 0.0 K/mm3 (0.0-0.1) 01/18/17 14:57 Add Manual Diff Complete 01/19/17 05:00 Total Counted 100 01/19/17 05:00 Seg Neutrophils % Confection[employer]er 01/19/17 05:00 Seg Neuts % (Manual) 99.0 % (40.0-70.0) H 01/19/17 05:00 Band Neutrophils % 0 % 01/19/17 05:00 Lymphocytes % (Manual) 1.0 % (13.4-35.0) L 01/19/17 05:00 Reactive Lymphs % (Man) 0 % 01/19/17 05:00 Monocytes % (Manual) 0 % (0.0-7.3) 01/19/17 05:00 Eosinophils % (Manual) 0 % (0.0-4.3) 01/19/17 05:00 Basophils % (Manual) 0 % (0.0-1.8) 01/19/17 05:00 Metamyelocytes % 0 % 01/19/17 05:00 Myelocytes % 0 % 01/19/17 05:00 Promyelocytes % 0 % 01/19/17 05:00 Blast Cells % 0 % 01/19/17 05:00 Nucleated RBC % 2.0 % (0.0-0.9) H 01/19/17 05:00 Seg Neutrophils # 3.7 K/mm3 (1.8-7.7) 01/18/17 14:57 Seg Neutrophils # Man 5.0 K/mm3 (1.8-7.7) 01/19/17 05:00 Band Neutrophils # 0.0 K/mm3 01/19/17 05:00 Lymphocytes # (Manual) 0.1 K/mm3 (1.2-5.4) L 01/19/17 05:00 Abs React Lymphs (Man) 0.0 K/mm3 01/19/17 05:00 Monocytes # (Manual) 0.0 K/mm3 (0.0-0.8) 01/19/17 05:00 Eosinophils # (Manual) 0.0 K/mm3 (0.0-0.4) 01/19/17 05:00 Basophils # (Manual) 0.0 K/mm3 (0.0-0.1) 01/19/17 05:00 Metamyelocytes # 0.0 K/mm3 01/19/17 05:00 Myelocytes # 0.0 K/mm3 01/19/17 05:00 Promyelocytes # 0.0 K/mm3 01/19/17 05:00 Blast Cells # 0.0 K/mm3 01/19/17 05:00 WBC Morphology Not Reportable 01/19/17 05:00 Hypersegmented Neuts Not Reportable 01/19/17 05:00 Hyposegmented Neuts Not Reportable 01/19/17 05:00 Hypogranular Neuts Not Reportable 01/19/17 05:00 Smudge Cells Few 01/19/17 05:00 Toxic Granulation Not Reportable 01/19/17 05:00 Toxic Vacuolation Not Reportable 01/19/17 05:00 Dohle Bodies Not Reportable 01/19/17 05:00 Pelger-Huet Anomaly Not Reportable 01/19/17 05:00 Alvaro Rods Not Reportable 01/19/17 05:00 Platelet Estimate Appears decreased 01/19/17 05:00 Clumped Platelets Not Reportable 01/19/17 05:00 Plt Clumps, EDTA Not Reportable 01/19/17 05:00 Large Platelets Not Reportable 01/19/17 05:00 Giant Platelets Not Reportable 01/19/17 05:00 Platelet Satelliting Not Reportable 01/19/17 05:00 Plt Morphology Comment Not Reportable 01/19/17 05:00 RBC Morphology Not Reportable 01/19/17 05:00 Dimorphic RBCs Not Reportable 01/19/17 05:00 Polychromasia Not Reportable 01/19/17 05:00 Hypochromasia Not Reportable 01/19/17 05:00 Poikilocytosis Not Reportable 01/19/17 05:00 Anisocytosis 1+ 01/19/17 05:00 Microcytosis Not Reportable 01/19/17 05:00 Macrocytosis 1+ 01/19/17 05:00 Spherocytes Not Reportable 01/19/17 05:00 Pappenheimer Bodies Not Reportable 01/19/17 05:00 Sickle Cells Not Reportable 01/19/17 05:00 Target Cells Not Reportable 01/19/17 05:00 Tear Drop Cells Not Reportable 01/19/17 05:00 Ovalocytes Not Reportable 01/19/17 05:00 Helmet Cells Not Reportable 01/19/17 05:00 [place] Bodies Not Reportable 01/19/17 05:00 [place] Rings Not Reportable 01/19/17 05:00 [place] Cells Not Reportable 01/19/17 05:00 Bite Cells Not Reportable 01/19/17 05:00 Crenated Cell Not Reportable 01/19/17 05:00 Elliptocytes Not Reportable 01/19/17 05:00 Acanthocytes (Spur) Not Reportable 01/19/17 05:00 Rouleaux Not Reportable 01/19/17 05:00 Hemoglobin C Crystals Not Reportable 01/19/17 05:00 Schistocytes Not Reportable 01/19/17 05:00 Malaria parasites Not Reportable 01/19/17 05:00 Oscar Bodies Not Reportable 01/19/17 05:00 Hem Pathologist Commnt No 01/19/17 05:00 PT 17.1 Sec. (12.2-14.9) H 01/22/17 05:57 INR 1.40 (0.87-1.13) H 01/22/17 05:57 APTT 69.4 Sec. (24.2-36.6) H* 01/22/17 05:57 D-Dimer 1652.46 ng/mlDDU (0-234) H 01/18/17 14:59 Heparin Anti-Xa Level 0.65 U.I./ml (0.3-0.7) 01/21/17 16:03 POC ABG pH 7.396 (7.35-7.45) 01/20/17 11:30 POC ABG pCO2 33.2 (35-45) L 01/20/17 11:30 POC ABG pO2 72 (80-105) L 01/20/17 11:30 POC ABG HCO3 20.3 01/20/17 11:30 POC ABG Total CO2 21 01/20/17 11:30 POC ABG O2 Sat 94 01/20/17 11:30 POC ABG Base Excess -5 01/20/17 11:30 FiO2 21 % 01/20/17 11:30 Sodium 136 mmol/L (137-145) L 01/22/17 05:57 Potassium 4.0 mmol/L (3.6-5.0) 01/22/17 05:57 Chloride 98.0 mmol/L (98-107) 01/22/17 05:57 Carbon Dioxide 24 mmol/L (22-30) 01/22/17 05:57 Anion Gap 18 mmol/L 01/22/17 05:57 BUN 76 mg/dL (9-20) H 01/22/17 05:57 Creatinine 2.1 mg/dL (0.8-1.5) H 01/22/17 05:57 Estimated GFR 39 ml/min 01/22/17 05:57 BUN/Creatinine Ratio 36.19 % 01/22/17 05:57 Glucose 201 mg/dL (75-100) H 01/22/17 05:57 POC Glucose 101 (70-105) 01/22/17 12:50 Calcium 8.2 mg/dL (8.4-10.2) L 01/22/17 05:57 Total Bilirubin 0.9 mg/dL (0.1-1.2) 01/22/17 05:57 AST 35 units/L (5-40) 01/22/17 05:57 ALT 25 units/L (7-56) 01/22/17 05:57 Alkaline Phosphatase 346 units/L (35-129) H 01/22/17 05:57 Troponin T 0.122 ng/mL (0.00-0.029) H* 01/18/17 14:57 Total Protein 5.8 g/dL (6.3-8.2) L 01/22/17 05:57 Albumin 3.1 g/dL (3.9-5) L 01/22/17 05:57 Albumin/Globulin Ratio 1.1 % 01/22/17 05:57 Triglycerides 76 mg/dL (2-149) 01/18/17 14:57 Cholesterol 117 mg/dL (50-199) 01/18/17 14:57 LDL Cholesterol Direct 58 mg/dL (50-130) 01/18/17 14:57 HDL Cholesterol 44 mg/dL (40-59) 01/18/17 14:57 Cholesterol/HDL Ratio 2.65 % 01/18/17 14:57 Fluid Type Ascitic 01/21/17 11:20 Fluid Color Red 01/21/17 11:20 Fluid Appearance Turbid 01/21/17 11:20 Fluid WBC 600 /mm3 01/21/17 11:20 Fluid RBC 50751 /mm3 01/21/17 11:20 Fluid Seg Neutrophils 53.0 % 01/21/17 11:20 Fluid Lymphocytes 18.0 % 01/21/17 11:20 Fluid Monocytes 29.0 % 01/21/17 11:20 Fluid Glucose 123 mg/dL (40-70) H 01/21/17 11:20 Fluid Total Protein 3.2 (15.0-45.0) L 01/21/17 11:20 Fluid Albumin 1.9 g/dL 01/21/17 11:20 Fluid LDH 180 01/21/17 11:20 Fluid Amylase 35 01/21/17 11:20 - Imaging and Cardiology CT scan - abdomen: report reviewed
--- NOTE | 2017-01-22 16:34 | Procedure Note ---
Date of procedure: 01/22/17 Pre-op diagnosis: Ascites Post-op diagnosis: same Procedure: Paracentesis Anesthesia: local Surgeon: JAMES MARTI Estimated blood loss: none Specimen disposition: to lab Condition: stable Disposition: floor
[2017-01-22] MEDS: LEVEMIR SUB-Q SCH (22:15)
--- NOTE | 2017-01-22 22:43 | Event Note ---
Date: 01/22/17 To see patient because of blisters on the right forearm Blisters are flaccid, right forearm discolored and swollen Continue to monitor, arm was wrapped in a gauze which was removed the patient refused wrap
[2017-01-23 04:55] LABS: BUN/Creatinine Ratio 35.45; Chloride 94.4 mmol/L (98-107); Potassium 3.9 mmol/L (3.6-5.0)
[2017-01-23] MEDS: APRESOLINE PO SCH ×3 (05:27→22:30)
[2017-01-23] MEDS: NEURONTIN PO SCH ×3 (05:27→22:30)
[2017-01-23] MEDS: BUMEX IV SCH ×2 (05:28→16:32)
[2017-01-23] MEDS: DUONEB 0.5 MG-3 MG/3 ML SOLN IH SCH ×3 (07:21→19:17)
[2017-01-23] MEDS ORDERED: PROVENTIL IH PRN (09:00)
[2017-01-23] MEDS: COREG PO SCH ×2 (10:28→22:30)
[2017-01-23] MEDS: BABY ASPIRIN PO SCH (10:29)
[2017-01-23] MEDS: COZAAR PO SCH (10:51)
[2017-01-23] MEDS: IMDUR PO SCH (10:53)
--- NOTE | 2017-01-23 11:02 | Progress Note ---
Assessment and Plan (1) Acute chest pain Current Visit: Yes Status: Acute Plan to address problem: - resolved - complete ACS w/up - VTE w/up negative so far (2) Acute exacerbation of chronic obstructive pulmonary disease (COPD) Current Visit: Yes Status: Acute Plan to address problem: - continue bronchodilators and pulmonary toilet - continue supplemental oxygen tokeep O2 Sats > 92% - treat CHF - prn BIPAP - empiric CAP AB's - continue systemic steroids with taper (3) Chronic kidney disease, stage III (moderate) Current Visit: No Status: Acute Plan to address problem: - per nephrology - will hold on CTA re: azotemia (4) Pulmonary HTN Current Visit: No Status: Chronic Plan to address problem: - continue to treat CHF - prevent hypoxemia - outpatient Pulm HTN work-up Subjective Date of service: 01/23/17 Principal diagnosis: Acute COPD exacerbation; Pulm HTN Interval history: Seen and examined at bedside; 24 hour events reviewed; nursing and respiratory care staff consulted; no adverse overnight events reported to me; walking in room; states that he feels better; denies acute chest pains or increased SOB Objective Vital Signs - 12hr 01/23/17 01/23/17 01/23/17 00:00 04:00 06:24 Temperature 98 F Pulse Rate 82 Pulse Rate [ Anterior Bilateral Throughout] Pulse Rate [ 86 86 From Monitor] Respiratory 20 20 Rate Respiratory Rate [Anterior Bilateral Throughout] Blood Pressure 152/73 149/80 [Left Arm] O2 Sat by Pulse 97 95 Oximetry 01/23/17 01/23/17 01/23/17 07:21 07:31 07:39 Temperature Pulse Rate Pulse Rate [ 83 85 Anterior Bilateral Throughout] Pulse Rate [ From Monitor] Respiratory Rate Respiratory 16 16 Rate [Anterior Bilateral Throughout] Blood Pressure [Left Arm] O2 Sat by Pulse 100 Oximetry Constitutional: no acute distress, alert Eyes: non-icteric ENT: oropharynx moist Neck: supple, no lymphadenopathy Effort: normal Ascultation: Bilateral: clear, diminished breath sounds (Prolonged expiratory phase.) Cardiovascular: regular rate and rhythm Gastrointestinal: normoactive bowel sounds, soft, non-tender, non-distended Integumentary: normal Extremities: no cyanosis, pulses normal, no ischemia or petechiae, edema Neurologic: normal mental status, non-focal exam, pupils equal and round, CN II- XII normal Psychiatric: mood appropriate, affect normal CBC and BMP: 01/25/17 05:29 01/25/17 05:29 ABG, PT/INR, D-dimer: ABG POC ABG pH 7.396 (7.35-7.45) 01/20/17 11:30 POC ABG pCO2 33.2 (35-45) L 01/20/17 11:30 POC ABG pO2 72 (80-105) L 01/20/17 11:30 POC ABG HCO3 20.3 01/20/17 11:30 POC ABG Total CO2 21 01/20/17 11:30 POC ABG O2 Sat 94 01/20/17 11:30 PT/INR, D-dimer PT 17.1 Sec. (12.2-14.9) H 01/22/17 05:57 INR 1.40 (0.87-1.13) H 01/22/17 05:57 D-Dimer 1652.46 ng/mlDDU (0-234) H 01/18/17 14:59 Abnormal lab findings: Abnormal Labs 01/18/17 01/19/17 01/19/17 21:05 05:00 05:00 Hgb 10.7 L Hct 34.6 L MCH 27 L MCHC 31 L RDW 21.7 H Plt Count 112 L Seg Neuts % (Manual) 99.0 H Lymphocytes % (Manual) 1.0 L Nucleated RBC % 2.0 H Lymphocytes # (Manual) 0.1 L PT INR APTT Heparin Anti-Xa Level POC ABG pCO2 POC ABG pO2 Sodium Chloride Carbon Dioxide 20 L BUN 71 H Creatinine 2.2 H Glucose 354 H POC Glucose 257 H Calcium Total Bilirubin 1.4 H AST 59 H Alkaline Phosphatase 499 H Troponin T Total Protein Albumin 3.3 L Fluid Glucose Fluid Total Protein 01/20/17 01/20/17 01/20/17 08:20 10:29 10:29 Hgb 10.5 L Hct 34.5 L MCH MCHC RDW Plt Count 90 L Seg Neuts % (Manual) Lymphocytes % (Manual) Nucleated RBC % Lymphocytes # (Manual) PT INR APTT Heparin Anti-Xa Level POC ABG pCO2 POC ABG pO2 Sodium 134 L Chloride 96.7 L Carbon Dioxide 20 L BUN 71 H Creatinine 2.1 H Glucose 616 H* POC Glucose > 500 H Calcium 8.2 L Total Bilirubin AST Alkaline Phosphatase Troponin T Total Protein Albumin Fluid Glucose Fluid Total Protein 01/20/17 01/20/17 01/20/17 10:29 11:22 11:30 Hgb Hct MCH MCHC RDW Plt Count Seg Neuts % (Manual) Lymphocytes % (Manual) Nucleated RBC % Lymphocytes # (Manual) PT 17.2 H INR 1.41 H APTT Heparin Anti-Xa Level POC ABG pCO2 33.2 L POC ABG pO2 72 L Sodium Chloride Carbon Dioxide BUN Creatinine Glucose POC Glucose 461 H Calcium Total Bilirubin AST Alkaline Phosphatase Troponin T Total Protein Albumin Fluid Glucose Fluid Total Protein 01/20/17 01/21/17 01/21/17 21:47 08:15 10:49 Hgb Hct MCH MCHC RDW Plt Count Seg Neuts % (Manual) Lymphocytes % (Manual) Nucleated RBC % Lymphocytes # (Manual) PT INR APTT Heparin Anti-Xa Level POC ABG pCO2 POC ABG pO2 Sodium Chloride Carbon Dioxide BUN 75 H Creatinine 2.3 H Glucose 131 H POC Glucose 177 H 42 L Calcium 8.0 L Total Bilirubin AST Alkaline Phosphatase Troponin T Total Protein Albumin Fluid Glucose Fluid Total Protein 01/21/17 01/21/17 01/21/17 11:20 11:58 16:27 Hgb Hct MCH MCHC RDW Plt Count Seg Neuts % (Manual) Lymphocytes % (Manual) Nucleated RBC % Lymphocytes # (Manual) PT INR APTT Heparin Anti-Xa Level POC ABG pCO2 POC ABG pO2 Sodium Chloride Carbon Dioxide BUN Creatinine Glucose POC Glucose 148 H 363 H Calcium Total Bilirubin AST Alkaline Phosphatase Troponin T Total Protein Albumin Fluid Glucose 123 H Fluid Total Protein 3.2 L 01/21/17 01/22/17 01/22/17 21:05 05:57 05:57 Hgb 9.0 L Hct 28.3 L D MCH MCHC RDW Plt Count 81 L Seg Neuts % (Manual) Lymphocytes % (Manual) Nucleated RBC % Lymphocytes # (Manual) PT INR APTT Heparin Anti-Xa Level POC ABG pCO2 POC ABG pO2 Sodium 136 L Chloride Carbon Dioxide BUN 76 H Creatinine 2.1 H Glucose 201 H POC Glucose 357 H Calcium 8.2 L Total Bilirubin AST Alkaline Phosphatase 346 H Troponin T Total Protein 5.8 L Albumin 3.1 L Fluid Glucose Fluid Total Protein 01/22/17 01/22/17 01/22/17 05:57 08:02 12:06 Hgb Hct MCH MCHC RDW Plt Count Seg Neuts % (Manual) Lymphocytes % (Manual) Nucleated RBC % Lymphocytes # (Manual) PT 17.1 H INR 1.40 H APTT 69.4 H* Heparin Anti-Xa Level POC ABG pCO2 POC ABG pO2 Sodium Chloride Carbon Dioxide BUN Creatinine Glucose POC Glucose 139 H < 40 L Calcium Total Bilirubin AST Alkaline Phosphatase Troponin T Total Protein Albumin Fluid Glucose Fluid Total Protein 01/22/17 01/22/17 01/22/17 17:05 21:37 23:04 Hgb Hct MCH MCHC RDW Plt Count Seg Neuts % (Manual) Lymphocytes % (Manual) Nucleated RBC % Lymphocytes # (Manual) PT INR APTT Heparin Anti-Xa Level < 0.10 L POC ABG pCO2 POC ABG pO2 Sodium Chloride Carbon Dioxide BUN Creatinine Glucose POC Glucose 214 H 456 H Calcium Total Bilirubin AST Alkaline Phosphatase Troponin T Total Protein Albumin Fluid Glucose Fluid Total Protein 01/22/17 01/22/17 01/23/17 23:04 23:04 04:13 Hgb Hct MCH MCHC RDW Plt Count Seg Neuts % (Manual) Lymphocytes % (Manual) Nucleated RBC % Lymphocytes # (Manual) PT INR APTT Heparin Anti-Xa Level POC ABG pCO2 POC ABG pO2 Sodium Chloride Carbon Dioxide BUN Creatinine Glucose 485 H POC Glucose Calcium Total Bilirubin AST Alkaline Phosphatase Troponin T 0.071 H D 0.053 H D Total Protein Albumin Fluid Glucose Fluid Total Protein 01/23/17 04:13 Hgb Hct MCH MCHC RDW Plt Count Seg Neuts % (Manual) Lymphocytes % (Manual) Nucleated RBC % Lymphocytes # (Manual) PT INR APTT Heparin Anti-Xa Level POC ABG pCO2 POC ABG pO2 Sodium 134 L Chloride 94.4 L Carbon Dioxide BUN 78 H Creatinine 2.2 H Glucose 406 H POC Glucose Calcium 8.0 L Total Bilirubin AST Alkaline Phosphatase Troponin T Total Protein Albumin Fluid Glucose Fluid Total Protein
[2017-01-23] MEDS: TRIPLE ANTIBIOTIC TP SCH ×2 (13:42→22:29)
--- NOTE | 2017-01-23 15:50 | Progress Note ---
Assessment and Plan Assessment and plan: (1) Acute exacerbation of chronic obstructive pulmonary disease (COPD) Current Visit: Yes Status: Acute Plan to address problem: cont duo nebs every 6 hrs [id number] and every 3 hrs prn and IV Levaquin now on prednisone po (2) Acute on chronic systolic heart failure Current Visit: Yes Status: Acute Plan to address problem: cont Bumex IV, monitor renal function Ef 40 to 45% (3) Elevated d-dimer Current Visit: Yes Status: Acute Plan to address problem: intermediate probability for PE on VQ scan Cannot get CT of chest for worsening renal function discussed pulmonary for further recommendation LE doppler was negative for DVT pulmonary recommended to stop heparin and to monitor clinically pt refused ABG (4) Accelerated hypertension Current Visit: No Status: Acute Plan to address problem: Adjust BP meds as needed, better control now. (5) elevated troponin Current Visit: No Status: Acute Could be due to CHF exacerbation with worsening renal function (6)CKD stage 3 Current Visit: No Status: chronic Plan to address problem: We'll monitor renal function carefully Avoid any nephrotoxins He continued to get worse we'll consult nephrology his baseline creatinine is 2.1 to 2.3 (7) Diabetes mellitus Current Visit: No Status: Chronic Qualifiers: Diabetes mellitus type: type 2 Diabetes mellitus complication status: with hypoglycemia Diabetes mellitus complication detail: without coma Diabetic retinopathy severity: D Proliferative retinopathy type: P Diabetes mellitus macular edema: D Diabetes mellitus terminal gauger insulin use: D Laterality: L Chronic kidney disease stage: C Plan to address problem: increase Lantus to 35 units sq and SSI coverage Blood glucose uncontrolled likely due to steroid will change steroid to po (8) Ascitis Current Visit: No Status: Acute could be due to CHF check hepatitis pannel s/p image guided paracenthesis drained 1.5 L of fluid (9) Acute skin eruption of discoloration, elevations, blisters Current Visit: Yes Status: Acute likely from heparin infiltration from IV wound care (10) thrombocytopenia Current Visit: Yes Status: Acute will cont to monitor, chronically low could be due to heparin will cont scd for dvt px History Interval history: Patient seen and examined. Medical records and medication list reviewed. No acute event overnight noted by the RN. Patient is tolerating diet. c/o rt upper extremity swelling blister and redness following iv infiltration. Discussed plan of care at bedside with patient. Hospitalist Physical - Physical exam Narrative exam: GENERAL: Elderly AAM lying on bed appeared to be in no discomfort. HEENT: Normocephalic. Atraumatic. No conjunctival congestion or icterus. Patient has moist mucous membranes. NECK: Supple. Trachea midline. CHEST/LUNGS: decrease BS auscultated bilaterally, breathing nonlabored. few bibasilar crackles. HEART/CARDIOVASCULAR: Regular in rate and rhythm. S1 and S2 positive. ABDOMEN: Abdomen is soft, nontender. Patient has normal bowel sounds. SKIN: There is no rash. Warm and dry. NEURO: No focal motor deficit. Follows command. MUSCULOSKELETAL: No joint effusion or tenderness. EXTRIMITY: 1+ edema, no cyanosis or clubbing. rt upper extremity with swelling , erythrema and multiple large blisters extending from hand upto elbow PSYCH: Cooperative. - Constitutional Vitals: Temp Pulse Resp BP Pulse Ox 98 F 82 18 149/80 100 01/23/17 06:24 01/23/17 14:28 01/23/17 14:28 01/23/17 06:24 01/23/17 10:00 General appearance: Present: no acute distress, well-nourished Results - Labs CBC & Chem 7: 01/24/17 04:20 01/23/17 04:13 Labs: Laboratory Last Values WBC 5.1 K/mm3 (4.5-11.0) 01/19/17 05:00 RBC 4.05 M/mm3 (3.65-5.03) 01/19/17 05:00 Hgb 9.0 gm/dl (11.8-15.2) L 01/22/17 05:57 Hct 28.3 % (35.5-45.6) L D 01/22/17 05:57 MCV 85 fl (84-94) 01/19/17 05:00 MCH 27 pg (28-32) L 01/19/17 05:00 MCHC 31 % (32-34) L 01/19/17 05:00 RDW 21.7 % (13.2-15.2) H 01/19/17 05:00 Plt Count 81 K/mm3 (140-440) L 01/22/17 05:57 Lymph % (Auto) 9.2 % (13.4-35.0) L 01/18/17 14:57 [place] % (Auto) 6.5 % (0.0-7.3) 01/18/17 14:57 Eos % (Auto) 0.4 % (0.0-4.3) 01/18/17 14:57 Baso % (Auto) 0.5 % (0.0-1.8) 01/18/17 14:57 Lymph # 0.4 K/mm3 (1.2-5.4) L 01/18/17 14:57 [place] # 0.3 K/mm3 (0.0-0.8) 01/18/17 14:57 Eos # 0.0 K/mm3 (0.0-0.4) 01/18/17 14:57 Baso # 0.0 K/mm3 (0.0-0.1) 01/18/17 14:57 Add Manual Diff Complete 01/19/17 05:00 Total Counted 100 01/19/17 05:00 Seg Neutrophils % Field Cane Scale Clerk 01/19/17 05:00 Seg Neuts % (Manual) 99.0 % (40.0-70.0) H 01/19/17 05:00 Band Neutrophils % 0 % 01/19/17 05:00 Lymphocytes % (Manual) 1.0 % (13.4-35.0) L 01/19/17 05:00 Reactive Lymphs % (Man) 0 % 01/19/17 05:00 Monocytes % (Manual) 0 % (0.0-7.3) 01/19/17 05:00 Eosinophils % (Manual) 0 % (0.0-4.3) 01/19/17 05:00 Basophils % (Manual) 0 % (0.0-1.8) 01/19/17 05:00 Metamyelocytes % 0 % 01/19/17 05:00 Myelocytes % 0 % 01/19/17 05:00 Promyelocytes % 0 % 01/19/17 05:00 Blast Cells % 0 % 01/19/17 05:00 Nucleated RBC % 2.0 % (0.0-0.9) H 01/19/17 05:00 Seg Neutrophils # 3.7 K/mm3 (1.8-7.7) 01/18/17 14:57 Seg Neutrophils # Man 5.0 K/mm3 (1.8-7.7) 01/19/17 05:00 Band Neutrophils # 0.0 K/mm3 01/19/17 05:00 Lymphocytes # (Manual) 0.1 K/mm3 (1.2-5.4) L 01/19/17 05:00 Abs React Lymphs (Man) 0.0 K/mm3 01/19/17 05:00 Monocytes # (Manual) 0.0 K/mm3 (0.0-0.8) 01/19/17 05:00 Eosinophils # (Manual) 0.0 K/mm3 (0.0-0.4) 01/19/17 05:00 Basophils # (Manual) 0.0 K/mm3 (0.0-0.1) 01/19/17 05:00 Metamyelocytes # 0.0 K/mm3 01/19/17 05:00 Myelocytes # 0.0 K/mm3 01/19/17 05:00 Promyelocytes # 0.0 K/mm3 01/19/17 05:00 Blast Cells # 0.0 K/mm3 01/19/17 05:00 WBC Morphology Not Reportable 01/19/17 05:00 Hypersegmented Neuts Not Reportable 01/19/17 05:00 Hyposegmented Neuts Not Reportable 01/19/17 05:00 Hypogranular Neuts Not Reportable 01/19/17 05:00 Smudge Cells Few 01/19/17 05:00 Toxic Granulation Not Reportable 01/19/17 05:00 Toxic Vacuolation Not Reportable 01/19/17 05:00 Dohle Bodies Not Reportable 01/19/17 05:00 Pelger-Huet Anomaly Not Reportable 01/19/17 05:00 Alvaro Rods Not Reportable 01/19/17 05:00 Platelet Estimate Appears decreased 01/19/17 05:00 Clumped Platelets Not Reportable 01/19/17 05:00 Plt Clumps, EDTA Not Reportable 01/19/17 05:00 Large Platelets Not Reportable 01/19/17 05:00 Giant Platelets Not Reportable 01/19/17 05:00 Platelet Satelliting Not Reportable 01/19/17 05:00 Plt Morphology Comment Not Reportable 01/19/17 05:00 RBC Morphology Not Reportable 01/19/17 05:00 Dimorphic RBCs Not Reportable 01/19/17 05:00 Polychromasia Not Reportable 01/19/17 05:00 Hypochromasia Not Reportable 01/19/17 05:00 Poikilocytosis Not Reportable 01/19/17 05:00 Anisocytosis 1+ 01/19/17 05:00 Microcytosis Not Reportable 01/19/17 05:00 Macrocytosis 1+ 01/19/17 05:00 Spherocytes Not Reportable 01/19/17 05:00 Pappenheimer Bodies Not Reportable 01/19/17 05:00 Sickle Cells Not Reportable 01/19/17 05:00 Target Cells Not Reportable 01/19/17 05:00 Tear Drop Cells Not Reportable 01/19/17 05:00 Ovalocytes Not Reportable 01/19/17 05:00 Helmet Cells Not Reportable 01/19/17 05:00 [place] Bodies Not Reportable 01/19/17 05:00 [place] Rings Not Reportable 01/19/17 05:00 [place]rick Cells Not Reportable 01/19/17 05:00 Bite Cells Not Reportable 01/19/17 05:00 Crenated Cell Not Reportable 01/19/17 05:00 Elliptocytes Not Reportable 01/19/17 05:00 Acanthocytes (Spur) Not Reportable 01/19/17 05:00 Rouleaux Not Reportable 01/19/17 05:00 Hemoglobin C Crystals Not Reportable 01/19/17 05:00 Schistocytes Not Reportable 01/19/17 05:00 Malaria parasites Not Reportable 01/19/17 05:00 Oscar Bodies Not Reportable 01/19/17 05:00 Hem Pathologist Commnt No 01/19/17 05:00 PT 17.1 Sec. (12.2-14.9) H 01/22/17 05:57 INR 1.40 (0.87-1.13) H 01/22/17 05:57 APTT 69.4 Sec. (24.2-36.6) H* 01/22/17 05:57 D-Dimer 1652.46 ng/mlDDU (0-234) H 01/18/17 14:59 Heparin Anti-Xa Level < 0.10 U.I./ml (0.3-0.7) L 01/22/17 23:04 POC ABG pH 7.396 (7.35-7.45) 01/20/17 11:30 POC ABG pCO2 33.2 (35-45) L 01/20/17 11:30 POC ABG pO2 72 (80-105) L 01/20/17 11:30 POC ABG HCO3 20.3 01/20/17 11:30 POC ABG Total CO2 21 01/20/17 11:30 POC ABG O2 Sat 94 01/20/17 11:30 POC ABG Base Excess -5 01/20/17 11:30 FiO2 21 % 01/20/17 11:30 Sodium 134 mmol/L (137-145) L 01/23/17 04:13 Potassium 3.9 mmol/L (3.6-5.0) 01/23/17 04:13 Chloride 94.4 mmol/L (98-107) L 01/23/17 04:13 Carbon Dioxide 25 mmol/L (22-30) 01/23/17 04:13 Anion Gap 19 mmol/L 01/23/17 04:13 BUN 78 mg/dL (9-20) H 01/23/17 04:13 Creatinine 2.2 mg/dL (0.8-1.5) H 01/23/17 04:13 Estimated GFR 37 ml/min 01/23/17 04:13 BUN/Creatinine Ratio 35.45 % 01/23/17 04:13 Glucose 406 mg/dL (75-100) H 01/23/17 04:13 POC Glucose 456 (70-105) H 01/22/17 21:37 Calcium 8.0 mg/dL (8.4-10.2) L 01/23/17 04:13 Total Bilirubin 0.9 mg/dL (0.1-1.2) 01/22/17 05:57 AST 35 units/L (5-40) 01/22/17 05:57 ALT 25 units/L (7-56) 01/22/17 05:57 Alkaline Phosphatase 346 units/L (35-129) H 01/22/17 05:57 Troponin T 0.053 ng/mL (0.00-0.029) H D 01/23/17 04:13 Total Protein 5.8 g/dL (6.3-8.2) L 01/22/17 05:57 Albumin 3.1 g/dL (3.9-5) L 01/22/17 05:57 Albumin/Globulin Ratio 1.1 % 01/22/17 05:57 Triglycerides 76 mg/dL (2-149) 01/18/17 14:57 Cholesterol 117 mg/dL (50-199) 01/18/17 14:57 LDL Cholesterol Direct 58 mg/dL (50-130) 01/18/17 14:57 HDL Cholesterol 44 mg/dL (40-59) 01/18/17 14:57 Cholesterol/HDL Ratio 2.65 % 01/18/17 14:57 Fluid Type Ascitic 01/21/17 11:20 Fluid Color Red 01/21/17 11:20 Fluid Appearance Turbid 01/21/17 11:20 Fluid WBC 600 /mm3 01/21/17 11:20 Fluid RBC 57635 /mm3 01/21/17 11:20 Fluid Seg Neutrophils 53.0 % 01/21/17 11:20 Fluid Lymphocytes 18.0 % 01/21/17 11:20 Fluid Monocytes 29.0 % 01/21/17 11:20 Fluid Glucose 123 mg/dL (40-70) H 01/21/17 11:20 Fluid Total Protein 3.2 (15.0-45.0) L 01/21/17 11:20 Fluid Albumin 1.9 g/dL 01/21/17 11:20 Fluid LDH 180 01/21/17 11:20 Fluid Amylase 35 01/21/17 11:20
[2017-01-23] MEDS: DELTASONE PO SCH (18:21)
[2017-01-23] MEDS: LEVEMIR SUB-Q SCH (22:30)
[2017-01-24] MEDS: BUMEX IV SCH ×2 (05:14→17:02)
[2017-01-24] MEDS: NEURONTIN PO SCH ×3 (05:14→22:28)
[2017-01-24] MEDS: APRESOLINE PO SCH ×3 (05:14→22:27)
[2017-01-24 05:31] LABS: Hematocrit 26.2 % (35.5-45.6); Hemoglobin 8.3 gm/dl (11.8-15.2)
[2017-01-24] MEDS: DUONEB 0.5 MG-3 MG/3 ML SOLN IH SCH ×3 (07:21→20:38)
[2017-01-24] MEDS: TRIPLE ANTIBIOTIC TP SCH ×3 (10:17→22:28)
[2017-01-24] MEDS: COZAAR PO SCH (10:17)
[2017-01-24] MEDS: IMDUR PO SCH (10:18)
[2017-01-24] MEDS: LEVAQUIN PO SCH (10:18)
[2017-01-24] MEDS: COREG PO SCH ×2 (10:19→22:28)
[2017-01-24] MEDS: DELTASONE PO SCH (10:19)
[2017-01-24] MEDS: BABY ASPIRIN PO SCH (10:19)
--- NOTE | 2017-01-24 13:29 | Progress Note ---
Assessment and Plan (1) Acute chest pain Current Visit: Yes Status: Acute Plan to address problem: - resolved - complete ACS w/up - VTE w/up negative so far (2) Acute exacerbation of chronic obstructive pulmonary disease (COPD) Current Visit: Yes Status: Acute Plan to address problem: - continue bronchodilators and pulmonary toilet - continue supplemental oxygen to keep O2 Sats > 92% - treat CHF - prn BIPAP - empiric CAP AB's (3) Chronic kidney disease, stage III (moderate) Current Visit: No Status: Acute Plan to address problem: - per nephrology - will hold on CTA re: azotemia (4) Pulmonary HTN Current Visit: No Status: Chronic Plan to address problem: - treat CHF - prevent hypoxemia - outpatient Pulm HTN work-up Subjective Date of service: 01/24/17 Principal diagnosis: Acute COPD exacerbation Interval history: Seen and examined at bedside; 24 hour events reviewed; nursing and respiratory care staff consulted; no adverse overnight events reported to me; no new issues respiratory-kinney; he is s/p paracentesis with cytology pending; no cough/ hemoptysis Objective Vital Signs - 12hr 01/24/17 01/24/17 01/24/17 05:54 07:21 07:31 Temperature 98.1 F Pulse Rate Pulse Rate [ 89 88 Anterior Bilateral Throughout] Pulse Rate [ 90 From Monitor] Respiratory 20 Rate Respiratory 20 20 Rate [Anterior Bilateral Throughout] Respiratory Rate [Chest] Blood Pressure 153/75 [Left Arm] O2 Sat by Pulse 97 Oximetry 01/24/17 01/24/17 01/24/17 09:12 10:55 11:22 Temperature 97.9 F Pulse Rate 94 H Pulse Rate [ Anterior Bilateral Throughout] Pulse Rate [ 94 H 87 From Monitor] Respiratory 20 20 Rate Respiratory Rate [Anterior Bilateral Throughout] Respiratory 20 Rate [Chest] Blood Pressure 156/87 [Left Arm] O2 Sat by Pulse 98 94 Oximetry 01/24/17 01/24/17 13:04 13:15 Temperature Pulse Rate Pulse Rate [ 85 84 Anterior Bilateral Throughout] Pulse Rate [ From Monitor] Respiratory Rate Respiratory 20 20 Rate [Anterior Bilateral Throughout] Respiratory Rate [Chest] Blood Pressure [Left Arm] O2 Sat by Pulse Oximetry Constitutional: no acute distress, alert Eyes: non-icteric ENT: oropharynx moist Neck: supple, no lymphadenopathy Effort: normal Ascultation: Bilateral: clear, diminished breath sounds (Prolonged expiratory phase.) Cardiovascular: regular rate and rhythm Gastrointestinal: normoactive bowel sounds, soft, non-tender, non-distended Integumentary: normal Extremities: no cyanosis, pulses normal, no ischemia or petechiae, edema Neurologic: normal mental status, non-focal exam, pupils equal and round, CN II- XII normal Psychiatric: mood appropriate, affect normal CBC and BMP: 01/25/17 05:29 01/25/17 05:29 ABG, PT/INR, D-dimer: ABG POC ABG pH 7.396 (7.35-7.45) 01/20/17 11:30 POC ABG pCO2 33.2 (35-45) L 01/20/17 11:30 POC ABG pO2 72 (80-105) L 01/20/17 11:30 POC ABG HCO3 20.3 01/20/17 11:30 POC ABG Total CO2 21 01/20/17 11:30 POC ABG O2 Sat 94 01/20/17 11:30 PT/INR, D-dimer PT 17.1 Sec. (12.2-14.9) H 01/22/17 05:57 INR 1.40 (0.87-1.13) H 01/22/17 05:57 D-Dimer 1652.46 ng/mlDDU (0-234) H 01/18/17 14:59 Abnormal lab findings: Abnormal Labs 01/18/17 01/19/17 01/19/17 21:05 05:00 05:00 Hgb 10.7 L Hct 34.6 L MCH 27 L MCHC 31 L RDW 21.7 H Plt Count 112 L Seg Neuts % (Manual) 99.0 H Lymphocytes % (Manual) 1.0 L Nucleated RBC % 2.0 H Lymphocytes # (Manual) 0.1 L PT INR APTT Heparin Anti-Xa Level POC ABG pCO2 POC ABG pO2 Sodium Chloride Carbon Dioxide 20 L BUN 71 H Creatinine 2.2 H Glucose 354 H POC Glucose 257 H Calcium Total Bilirubin 1.4 H AST 59 H Alkaline Phosphatase 499 H Troponin T Total Protein Albumin 3.3 L Fluid Glucose Fluid Total Protein 01/20/17 01/20/17 01/20/17 08:20 10:29 10:29 Hgb 10.5 L Hct 34.5 L MCH MCHC RDW Plt Count 90 L Seg Neuts % (Manual) Lymphocytes % (Manual) Nucleated RBC % Lymphocytes # (Manual) PT INR APTT Heparin Anti-Xa Level POC ABG pCO2 POC ABG pO2 Sodium 134 L Chloride 96.7 L Carbon Dioxide 20 L BUN 71 H Creatinine 2.1 H Glucose 616 H* POC Glucose > 500 H Calcium 8.2 L Total Bilirubin AST Alkaline Phosphatase Troponin T Total Protein Albumin Fluid Glucose Fluid Total Protein 01/20/17 01/20/17 01/20/17 10:29 11:22 11:30 Hgb Hct MCH MCHC RDW Plt Count Seg Neuts % (Manual) Lymphocytes % (Manual) Nucleated RBC % Lymphocytes # (Manual) PT 17.2 H INR 1.41 H APTT Heparin Anti-Xa Level POC ABG pCO2 33.2 L POC ABG pO2 72 L Sodium Chloride Carbon Dioxide BUN Creatinine Glucose POC Glucose 461 H Calcium Total Bilirubin AST Alkaline Phosphatase Troponin T Total Protein Albumin Fluid Glucose Fluid Total Protein 01/20/17 01/21/17 01/21/17 21:47 08:15 10:49 Hgb Hct MCH MCHC RDW Plt Count Seg Neuts % (Manual) Lymphocytes % (Manual) Nucleated RBC % Lymphocytes # (Manual) PT INR APTT Heparin Anti-Xa Level POC ABG pCO2 POC ABG pO2 Sodium Chloride Carbon Dioxide BUN 75 H Creatinine 2.3 H Glucose 131 H POC Glucose 177 H 42 L Calcium 8.0 L Total Bilirubin AST Alkaline Phosphatase Troponin T Total Protein Albumin Fluid Glucose Fluid Total Protein 01/21/17 01/21/17 01/21/17 11:20 11:58 16:27 Hgb Hct MCH MCHC RDW Plt Count Seg Neuts % (Manual) Lymphocytes % (Manual) Nucleated RBC % Lymphocytes # (Manual) PT INR APTT Heparin Anti-Xa Level POC ABG pCO2 POC ABG pO2 Sodium Chloride Carbon Dioxide BUN Creatinine Glucose POC Glucose 148 H 363 H Calcium Total Bilirubin AST Alkaline Phosphatase Troponin T Total Protein Albumin Fluid Glucose 123 H Fluid Total Protein 3.2 L 01/21/17 01/22/17 01/22/17 21:05 05:57 05:57 Hgb 9.0 L Hct 28.3 L D MCH MCHC RDW Plt Count 81 L Seg Neuts % (Manual) Lymphocytes % (Manual) Nucleated RBC % Lymphocytes # (Manual) PT INR APTT Heparin Anti-Xa Level POC ABG pCO2 POC ABG pO2 Sodium 136 L Chloride Carbon Dioxide BUN 76 H Creatinine 2.1 H Glucose 201 H POC Glucose 357 H Calcium 8.2 L Total Bilirubin AST Alkaline Phosphatase 346 H Troponin T Total Protein 5.8 L Albumin 3.1 L Fluid Glucose Fluid Total Protein 01/22/17 01/22/17 01/22/17 05:57 08:02 12:06 Hgb Hct MCH MCHC RDW Plt Count Seg Neuts % (Manual) Lymphocytes % (Manual) Nucleated RBC % Lymphocytes # (Manual) PT 17.1 H INR 1.40 H APTT 69.4 H* Heparin Anti-Xa Level POC ABG pCO2 POC ABG pO2 Sodium Chloride Carbon Dioxide BUN Creatinine Glucose POC Glucose 139 H < 40 L Calcium Total Bilirubin AST Alkaline Phosphatase Troponin T Total Protein Albumin Fluid Glucose Fluid Total Protein 01/22/17 01/22/17 01/22/17 17:05 21:37 23:04 Hgb Hct MCH MCHC RDW Plt Count Seg Neuts % (Manual) Lymphocytes % (Manual) Nucleated RBC % Lymphocytes # (Manual) PT INR APTT Heparin Anti-Xa Level < 0.10 L POC ABG pCO2 POC ABG pO2 Sodium Chloride Carbon Dioxide BUN Creatinine Glucose POC Glucose 214 H 456 H Calcium Total Bilirubin AST Alkaline Phosphatase Troponin T Total Protein Albumin Fluid Glucose Fluid Total Protein 01/22/17 01/22/17 01/23/17 23:04 23:04 04:13 Hgb Hct MCH MCHC RDW Plt Count Seg Neuts % (Manual) Lymphocytes % (Manual) Nucleated RBC % Lymphocytes # (Manual) PT INR APTT Heparin Anti-Xa Level POC ABG pCO2 POC ABG pO2 Sodium Chloride Carbon Dioxide BUN Creatinine Glucose 485 H POC Glucose Calcium Total Bilirubin AST Alkaline Phosphatase Troponin T 0.071 H D 0.053 H D Total Protein Albumin Fluid Glucose Fluid Total Protein 01/23/17 01/23/17 01/23/17 04:13 08:02 13:35 Hgb Hct MCH MCHC RDW Plt Count Seg Neuts % (Manual) Lymphocytes % (Manual) Nucleated RBC % Lymphocytes # (Manual) PT INR APTT Heparin Anti-Xa Level POC ABG pCO2 POC ABG pO2 Sodium 134 L Chloride 94.4 L Carbon Dioxide BUN 78 H Creatinine 2.2 H Glucose 406 H POC Glucose 320 H 301 H Calcium 8.0 L Total Bilirubin AST Alkaline Phosphatase Troponin T Total Protein Albumin Fluid Glucose Fluid Total Protein 01/23/17 01/23/17 01/24/17 16:39 21:15 04:20 Hgb 8.3 L Hct 26.2 L MCH MCHC RDW Plt Count 69 L Seg Neuts % (Manual) Lymphocytes % (Manual) Nucleated RBC % Lymphocytes # (Manual) PT INR APTT Heparin Anti-Xa Level POC ABG pCO2 POC ABG pO2 Sodium Chloride Carbon Dioxide BUN Creatinine Glucose POC Glucose 280 H 377 H Calcium Total Bilirubin AST Alkaline Phosphatase Troponin T Total Protein Albumin Fluid Glucose Fluid Total Protein 01/24/17 11:54 Hgb Hct MCH MCHC RDW Plt Count Seg Neuts % (Manual) Lymphocytes % (Manual) Nucleated RBC % Lymphocytes # (Manual) PT INR APTT Heparin Anti-Xa Level POC ABG pCO2 POC ABG pO2 Sodium Chloride Carbon Dioxide BUN Creatinine Glucose POC Glucose 274 H Calcium Total Bilirubin AST Alkaline Phosphatase Troponin T Total Protein Albumin Fluid Glucose Fluid Total Protein
--- NOTE | 2017-01-24 16:26 | Progress Note ---
Assessment and Plan Assessment and plan: (1) Acute exacerbation of chronic obstructive pulmonary disease (COPD) Current Visit: Yes Status: Acute Plan to address problem: cont duo nebs every 6 hrs [id number] and every 3 hrs prn and IV Levaquin now on prednisone po (2) Acute on chronic systolic heart failure Current Visit: Yes Status: Acute Plan to address problem: cont Bumex IV, monitor renal function Ef 40 to 45% (3) Elevated d-dimer Current Visit: Yes Status: Acute Plan to address problem: intermediate probability for PE on VQ scan Cannot get CT of chest for worsening renal function discussed pulmonary for further recommendation LE doppler was negative for DVT pulmonary recommended to stop heparin and to monitor clinically pt refused ABG (4) Accelerated hypertension Current Visit: No Status: Acute Plan to address problem: Adjust BP meds as needed, better control now. (5) elevated troponin Current Visit: No Status: Acute Could be due to CHF exacerbation with worsening renal function (6)CKD stage 3 Current Visit: No Status: chronic Plan to address problem: We'll monitor renal function carefully Avoid any nephrotoxins He continued to get worse we'll consult nephrology his baseline creatinine is 2.1 to 2.3 (7) Diabetes mellitus Current Visit: No Status: Chronic Qualifiers: Diabetes mellitus type: type 2 Diabetes mellitus complication status: with hypoglycemia Diabetes mellitus complication detail: without coma Diabetic retinopathy severity: D Proliferative retinopathy type: P Diabetes mellitus macular edema: D Diabetes mellitus manager intermediate insulin use: D Laterality: L Chronic kidney disease stage: C Plan to address problem: increased Lantus to 35 units sq and SSI coverage Blood glucose uncontrolled likely due to steroid tappering dose of steroid (8) Ascitis Current Visit: No Status: Acute could be due to CHF hepatitis pannel negative he has h/o alcohol abuse in the past but states that he quit several years ago s/p image guided paracenthesis drained 1.5 L of fluid (9) Acute skin eruption of discoloration, elevations, blisters Current Visit: Yes Status: Acute likely from heparin infiltration from IV wound care (10) thrombocytopenia Current Visit: Yes Status: Acute on chronic will cont to monitor, chronically low number further dropped today will consult hematology, platelet count was normal on 2014 will check b12 and folate could be due to heparin will cont scd for dvt px (11) anemia Current Visit: Yes Status: Acute on chronic will check b12 and folate stool for occult blood History Interval history: Patient seen and examined. Medical records and medication list reviewed. No acute event overnight noted by the RN. Patient is tolerating diet. c/o rt upper extremity swelling blister and redness following iv infiltration. Discussed plan of care at bedside with patient. Hospitalist Physical - Physical exam Narrative exam: GENERAL: Elderly AAM lying on bed appeared to be in no discomfort. HEENT: Normocephalic. Atraumatic. No conjunctival congestion or icterus. Patient has moist mucous membranes. NECK: Supple. Trachea midline. CHEST/LUNGS: decrease BS auscultated bilaterally, breathing nonlabored. few bibasilar crackles. HEART/CARDIOVASCULAR: Regular in rate and rhythm. S1 and S2 positive. ABDOMEN: Abdomen is soft, nontender. Patient has normal bowel sounds. SKIN: There is no rash. Warm and dry. NEURO: No focal motor deficit. Follows command. MUSCULOSKELETAL: No joint effusion or tenderness. EXTRIMITY: 1+ edema, no cyanosis or clubbing. rt upper extremity with wound dressing PSYCH: Cooperative. - Constitutional Vitals: Temp Pulse Resp BP Pulse Ox 98.1 F 86 20 161/82 94 01/24/17 15:26 01/24/17 15:26 01/24/17 15:26 01/24/17 15:26 01/24/17 15:26 General appearance: Present: no acute distress, well-nourished Results - Labs CBC & Chem 7: 01/24/17 04:20 01/23/17 04:13 Labs: Laboratory Last Values WBC 5.1 K/mm3 (4.5-11.0) 01/19/17 05:00 RBC 4.05 M/mm3 (3.65-5.03) 01/19/17 05:00 Hgb 8.3 gm/dl (11.8-15.2) L 01/24/17 04:20 Hct 26.2 % (35.5-45.6) L 01/24/17 04:20 MCV 85 fl (84-94) 01/19/17 05:00 MCH 27 pg (28-32) L 01/19/17 05:00 MCHC 31 % (32-34) L 01/19/17 05:00 RDW 21.7 % (13.2-15.2) H 01/19/17 05:00 Plt Count 69 K/mm3 (140-440) L 01/24/17 04:20 Lymph % (Auto) 9.2 % (13.4-35.0) L 01/18/17 14:57 [place] % (Auto) 6.5 % (0.0-7.3) 01/18/17 14:57 Eos % (Auto) 0.4 % (0.0-4.3) 01/18/17 14:57 Baso % (Auto) 0.5 % (0.0-1.8) 01/18/17 14:57 Lymph # 0.4 K/mm3 (1.2-5.4) L 01/18/17 14:57 [place] # 0.3 K/mm3 (0.0-0.8) 01/18/17 14:57 Eos # 0.0 K/mm3 (0.0-0.4) 01/18/17 14:57 Baso # 0.0 K/mm3 (0.0-0.1) 01/18/17 14:57 Add Manual Diff Complete 01/19/17 05:00 Total Counted 100 01/19/17 05:00 Seg Neutrophils % Retention Manager 01/19/17 05:00 Seg Neuts % (Manual) 99.0 % (40.0-70.0) H 01/19/17 05:00 Band Neutrophils % 0 % 01/19/17 05:00 Lymphocytes % (Manual) 1.0 % (13.4-35.0) L 01/19/17 05:00 Reactive Lymphs % (Man) 0 % 01/19/17 05:00 Monocytes % (Manual) 0 % (0.0-7.3) 01/19/17 05:00 Eosinophils % (Manual) 0 % (0.0-4.3) 01/19/17 05:00 Basophils % (Manual) 0 % (0.0-1.8) 01/19/17 05:00 Metamyelocytes % 0 % 01/19/17 05:00 Myelocytes % 0 % 01/19/17 05:00 Promyelocytes % 0 % 01/19/17 05:00 Blast Cells % 0 % 01/19/17 05:00 Nucleated RBC % 2.0 % (0.0-0.9) H 01/19/17 05:00 Seg Neutrophils # 3.7 K/mm3 (1.8-7.7) 01/18/17 14:57 Seg Neutrophils # Man 5.0 K/mm3 (1.8-7.7) 01/19/17 05:00 Band Neutrophils # 0.0 K/mm3 01/19/17 05:00 Lymphocytes # (Manual) 0.1 K/mm3 (1.2-5.4) L 01/19/17 05:00 Abs React Lymphs (Man) 0.0 K/mm3 01/19/17 05:00 Monocytes # (Manual) 0.0 K/mm3 (0.0-0.8) 01/19/17 05:00 Eosinophils # (Manual) 0.0 K/mm3 (0.0-0.4) 01/19/17 05:00 Basophils # (Manual) 0.0 K/mm3 (0.0-0.1) 01/19/17 05:00 Metamyelocytes # 0.0 K/mm3 01/19/17 05:00 Myelocytes # 0.0 K/mm3 01/19/17 05:00 Promyelocytes # 0.0 K/mm3 01/19/17 05:00 Blast Cells # 0.0 K/mm3 01/19/17 05:00 WBC Morphology Not Reportable 01/19/17 05:00 Hypersegmented Neuts Not Reportable 01/19/17 05:00 Hyposegmented Neuts Not Reportable 01/19/17 05:00 Hypogranular Neuts Not Reportable 01/19/17 05:00 Smudge Cells Few 01/19/17 05:00 Toxic Granulation Not Reportable 01/19/17 05:00 Toxic Vacuolation Not Reportable 01/19/17 05:00 Dohle Bodies Not Reportable 01/19/17 05:00 Pelger-Huet Anomaly Not Reportable 01/19/17 05:00 Alvaro Rods Not Reportable 01/19/17 05:00 Platelet Estimate Appears decreased 01/19/17 05:00 Clumped Platelets Not Reportable 01/19/17 05:00 Plt Clumps, EDTA Not Reportable 01/19/17 05:00 Large Platelets Not Reportable 01/19/17 05:00 Giant Platelets Not Reportable 01/19/17 05:00 Platelet Satelliting Not Reportable 01/19/17 05:00 Plt Morphology Comment Not Reportable 01/19/17 05:00 RBC Morphology Not Reportable 01/19/17 05:00 Dimorphic RBCs Not Reportable 01/19/17 05:00 Polychromasia Not Reportable 01/19/17 05:00 Hypochromasia Not Reportable 01/19/17 05:00 Poikilocytosis Not Reportable 01/19/17 05:00 Anisocytosis 1+ 01/19/17 05:00 Microcytosis Not Reportable 01/19/17 05:00 Macrocytosis 1+ 01/19/17 05:00 Spherocytes Not Reportable 01/19/17 05:00 Pappenheimer Bodies Not Reportable 01/19/17 05:00 Sickle Cells Not Reportable 01/19/17 05:00 Target Cells Not Reportable 01/19/17 05:00 Tear Drop Cells Not Reportable 01/19/17 05:00 Ovalocytes Not Reportable 01/19/17 05:00 Helmet Cells Not Reportable 01/19/17 05:00 Garcia-Pisek Bodies Not Reportable 01/19/17 05:00 [place] Rings Not Reportable 01/19/17 05:00 [place] Cells Not Reportable 01/19/17 05:00 Bite Cells Not Reportable 01/19/17 05:00 Crenated Cell Not Reportable 01/19/17 05:00 Elliptocytes Not Reportable 01/19/17 05:00 Acanthocytes (Spur) Not Reportable 01/19/17 05:00 Rouleaux Not Reportable 01/19/17 05:00 Hemoglobin C Crystals Not Reportable 01/19/17 05:00 Schistocytes Not Reportable 01/19/17 05:00 Malaria parasites Not Reportable 01/19/17 05:00 [place] Bodies Not Reportable 01/19/17 05:00 Hem Pathologist Commnt No 01/19/17 05:00 PT 17.1 Sec. (12.2-14.9) H 01/22/17 05:57 INR 1.40 (0.87-1.13) H 01/22/17 05:57 APTT 69.4 Sec. (24.2-36.6) H* 01/22/17 05:57 D-Dimer 1652.46 ng/mlDDU (0-234) H 01/18/17 14:59 Heparin Anti-Xa Level < 0.10 U.I./ml (0.3-0.7) L 01/22/17 23:04 POC ABG pH 7.396 (7.35-7.45) 01/20/17 11:30 POC ABG pCO2 33.2 (35-45) L 01/20/17 11:30 POC ABG pO2 72 (80-105) L 01/20/17 11:30 POC ABG HCO3 20.3 01/20/17 11:30 POC ABG Total CO2 21 01/20/17 11:30 POC ABG O2 Sat 94 01/20/17 11:30 POC ABG Base Excess -5 01/20/17 11:30 FiO2 21 % 01/20/17 11:30 Sodium 134 mmol/L (137-145) L 01/23/17 04:13 Potassium 3.9 mmol/L (3.6-5.0) 01/23/17 04:13 Chloride 94.4 mmol/L (98-107) L 01/23/17 04:13 Carbon Dioxide 25 mmol/L (22-30) 01/23/17 04:13 Anion Gap 19 mmol/L 01/23/17 04:13 BUN 78 mg/dL (9-20) H 01/23/17 04:13 Creatinine 2.2 mg/dL (0.8-1.5) H 01/23/17 04:13 Estimated GFR 37 ml/min 01/23/17 04:13 BUN/Creatinine Ratio 35.45 % 01/23/17 04:13 Glucose 406 mg/dL (75-100) H 01/23/17 04:13 POC Glucose 274 (70-105) H 01/24/17 11:54 Calcium 8.0 mg/dL (8.4-10.2) L 01/23/17 04:13 Total Bilirubin 0.9 mg/dL (0.1-1.2) 01/22/17 05:57 AST 35 units/L (5-40) 01/22/17 05:57 ALT 25 units/L (7-56) 01/22/17 05:57 Alkaline Phosphatase 346 units/L (35-129) H 01/22/17 05:57 Troponin T 0.053 ng/mL (0.00-0.029) H D 01/23/17 04:13 Total Protein 5.8 g/dL (6.3-8.2) L 01/22/17 05:57 Albumin 3.1 g/dL (3.9-5) L 01/22/17 05:57 Albumin/Globulin Ratio 1.1 % 01/22/17 05:57 Triglycerides 76 mg/dL (2-149) 01/18/17 14:57 Cholesterol 117 mg/dL (50-199) 01/18/17 14:57 LDL Cholesterol Direct 58 mg/dL (50-130) 01/18/17 14:57 HDL Cholesterol 44 mg/dL (40-59) 01/18/17 14:57 Cholesterol/HDL Ratio 2.65 % 01/18/17 14:57 Vitamin B12 863.7 pg/mL (211-911) 01/23/17 15:51 Folate 17.65 ng/mL (7.3-26.0) 01/23/17 15:51 TSH 1.550 mlU/mL (0.270-4.200) 01/23/17 15:51 Fluid Type Ascitic 01/21/17 11:20 Fluid Color Red 01/21/17 11:20 Fluid Appearance Turbid 01/21/17 11:20 Fluid WBC 600 /mm3 01/21/17 11:20 Fluid RBC 77072 /mm3 01/21/17 11:20 Fluid Seg Neutrophils 53.0 % 01/21/17 11:20 Fluid Lymphocytes 18.0 % 01/21/17 11:20 Fluid Monocytes 29.0 % 01/21/17 11:20 Fluid Glucose 123 mg/dL (40-70) H 01/21/17 11:20 Fluid Total Protein 3.2 (15.0-45.0) L 01/21/17 11:20 Fluid Albumin 1.9 g/dL 01/21/17 11:20 Fluid LDH 180 01/21/17 11:20 Fluid Amylase 35 01/21/17 11:20 Hepatitis A IgM Ab Non-reactive (NonReactive) 01/23/17 15:51 Hep Bs Antigen Non-reactive (Negative) 01/23/17 15:51 Hep B Core IgM Ab Non-reactive (NonReactive) 01/23/17 15:51 Hepatitis C Antibody Non-reactive (NonReactive) 01/23/17 15:51
[2017-01-24] MEDS: PROTONIX PO SCH (17:01)
[2017-01-24] MEDS: LEVEMIR SUB-Q SCH (22:29)
[2017-01-25] MEDS: NEURONTIN PO SCH ×2 (05:20→14:40)
[2017-01-25] MEDS: BUMEX IV SCH (05:20)
[2017-01-25] MEDS: APRESOLINE PO SCH ×2 (05:20→14:40)
[2017-01-25 06:31] LABS: Basophils % (Auto) 0.1 % (0.0-1.8); Eosinophils % (Auto) 0.3 % (0.0-4.3); Hematocrit 27.4 % (35.5-45.6); Hemoglobin 8.7 gm/dl (11.8-15.2); Mean Corpuscular HGB Conc 32 % (32-34); Mean Corpuscular Hemoglobin 26 pg (28-32); Mean Corpuscular Volume 83 fl (84-94); Red Blood Count 3.29 M/mm3 (3.65-5.03); Red Cell Distribution Width 19.8 % (13.2-15.2); White Blood Count 5.5 K/mm3 (4.5-11.0)
[2017-01-25 06:35] LABS: Platelet Count 71 K/mm3 (140-440)
[2017-01-25 06:53] LABS: BUN/Creatinine Ratio 35.26; Calcium 8.3 mg/dL (8.4-10.2); Chloride 101.8 mmol/L (98-107); Potassium 3.8 mmol/L (3.6-5.0)
[2017-01-25] MEDS: DUONEB 0.5 MG-3 MG/3 ML SOLN IH SCH ×2 (07:42→13:31)
[2017-01-25 07:50] LABS: Total Iron Binding Capacity 291.2 mcg/dL (250-450)
[2017-01-25 09:46] VITALS: BP 142/69
[2017-01-25] MEDS: COZAAR PO SCH (09:54)
[2017-01-25] MEDS: BABY ASPIRIN PO SCH (09:55)
[2017-01-25] MEDS: IMDUR PO SCH (09:55)
[2017-01-25] MEDS: COREG PO SCH (09:56)
[2017-01-25] MEDS: PROTONIX PO SCH (09:56)
[2017-01-25] MEDS: DELTASONE PO SCH (09:56)
[2017-01-25] MEDS: TRIPLE ANTIBIOTIC TP SCH (09:58)
--- NOTE | 2017-01-25 13:20 | Progress Note ---
Subjective Date of service: 01/25/17 Principal diagnosis: Acute COPD exacerbation Interval history: Seen and examined at bedside; 24 hour events reviewed; nursing and respiratory care staff consulted; no adverse overnight events reported to me; Objective Vital Signs - 12hr 01/25/17 01/25/17 01/25/17 01:37 04:00 06:44 Temperature 98.5 F 98.7 F Pulse Rate 85 Pulse Rate [ Anterior Bilateral Throughout] Pulse Rate [ 89 82 Left Radial] Respiratory 18 20 Rate Respiratory Rate [Anterior Bilateral Throughout] Blood Pressure 152/76 153/72 [Left Arm] O2 Sat by Pulse 95 Oximetry 01/25/17 01/25/17 01/25/17 07:42 07:53 08:00 Temperature 97.5 F L Pulse Rate Pulse Rate [ 82 83 Anterior Bilateral Throughout] Pulse Rate [ 82 Left Radial] Respiratory 20 Rate Respiratory 20 20 Rate [Anterior Bilateral Throughout] Blood Pressure 142/69 [Left Arm] O2 Sat by Pulse 99 Oximetry 01/25/17 01/25/17 09:54 09:56 Temperature Pulse Rate 82 84 Pulse Rate [ Anterior Bilateral Throughout] Pulse Rate [ Left Radial] Respiratory Rate Respiratory Rate [Anterior Bilateral Throughout] Blood Pressure [Left Arm] O2 Sat by Pulse Oximetry Constitutional: no acute distress, alert Eyes: non-icteric ENT: oropharynx moist Neck: supple, no lymphadenopathy Effort: normal Ascultation: Bilateral: clear, diminished breath sounds (Prolonged expiratory phase.) Cardiovascular: regular rate and rhythm Gastrointestinal: normoactive bowel sounds, soft, non-tender, non-distended Integumentary: normal Extremities: no cyanosis, pulses normal, no ischemia or petechiae, edema Neurologic: normal mental status, non-focal exam, pupils equal and round, CN II- XII normal Psychiatric: mood appropriate, affect normal CBC and BMP: 01/25/17 05:29 01/25/17 05:29 ABG, PT/INR, D-dimer: ABG POC ABG pH 7.396 (7.35-7.45) 01/20/17 11:30 POC ABG pCO2 33.2 (35-45) L 01/20/17 11:30 POC ABG pO2 72 (80-105) L 01/20/17 11:30 POC ABG HCO3 20.3 01/20/17 11:30 POC ABG Total CO2 21 01/20/17 11:30 POC ABG O2 Sat 94 01/20/17 11:30 PT/INR, D-dimer PT 17.1 Sec. (12.2-14.9) H 01/22/17 05:57 INR 1.40 (0.87-1.13) H 01/22/17 05:57 D-Dimer 1652.46 ng/mlDDU (0-234) H 01/18/17 14:59 Abnormal lab findings: Abnormal Labs 01/18/17 01/19/17 01/19/17 21:05 05:00 05:00 RBC Hgb 10.7 L Hct 34.6 L MCV MCH 27 L MCHC 31 L RDW 21.7 H Plt Count 112 L [place] % (Auto) Lymph # Seg Neutrophils % Seg Neuts % (Manual) 99.0 H Lymphocytes % (Manual) 1.0 L Nucleated RBC % 2.0 H Lymphocytes # (Manual) 0.1 L PT INR APTT Heparin Anti-Xa Level POC ABG pCO2 POC ABG pO2 Sodium Chloride Carbon Dioxide 20 L BUN 71 H Creatinine 2.2 H Glucose 354 H POC Glucose 257 H Calcium Total Bilirubin 1.4 H AST 59 H Alkaline Phosphatase 499 H Troponin T Total Protein Albumin 3.3 L Fluid Glucose Fluid Total Protein 01/20/17 01/20/17 01/20/17 08:20 10:29 10:29 RBC Hgb 10.5 L Hct 34.5 L MCV MCH MCHC RDW Plt Count 90 L [place] % (Auto) Lymph # Seg Neutrophils % Seg Neuts % (Manual) Lymphocytes % (Manual) Nucleated RBC % Lymphocytes # (Manual) PT INR APTT Heparin Anti-Xa Level POC ABG pCO2 POC ABG pO2 Sodium 134 L Chloride 96.7 L Carbon Dioxide 20 L BUN 71 H Creatinine 2.1 H Glucose 616 H* POC Glucose > 500 H Calcium 8.2 L Total Bilirubin AST Alkaline Phosphatase Troponin T Total Protein Albumin Fluid Glucose Fluid Total Protein 01/20/17 01/20/17 01/20/17 10:29 11:22 11:30 RBC Hgb Hct MCV MCH MCHC RDW Plt Count [place] % (Auto) Lymph # Seg Neutrophils % Seg Neuts % (Manual) Lymphocytes % (Manual) Nucleated RBC % Lymphocytes # (Manual) PT 17.2 H INR 1.41 H APTT Heparin Anti-Xa Level POC ABG pCO2 33.2 L POC ABG pO2 72 L Sodium Chloride Carbon Dioxide BUN Creatinine Glucose POC Glucose 461 H Calcium Total Bilirubin AST Alkaline Phosphatase Troponin T Total Protein Albumin Fluid Glucose Fluid Total Protein 01/20/17 01/21/17 01/21/17 21:47 08:15 10:49 RBC Hgb Hct MCV MCH MCHC RDW Plt Count [place] % (Auto) Lymph # Seg Neutrophils % Seg Neuts % (Manual) Lymphocytes % (Manual) Nucleated RBC % Lymphocytes # (Manual) PT INR APTT Heparin Anti-Xa Level POC ABG pCO2 POC ABG pO2 Sodium Chloride Carbon Dioxide BUN 75 H Creatinine 2.3 H Glucose 131 H POC Glucose 177 H 42 L Calcium 8.0 L Total Bilirubin AST Alkaline Phosphatase Troponin T Total Protein Albumin Fluid Glucose Fluid Total Protein 01/21/17 01/21/17 01/21/17 11:20 11:58 16:27 RBC Hgb Hct MCV MCH MCHC RDW Plt Count [place] % (Auto) Lymph # Seg Neutrophils % Seg Neuts % (Manual) Lymphocytes % (Manual) Nucleated RBC % Lymphocytes # (Manual) PT INR APTT Heparin Anti-Xa Level POC ABG pCO2 POC ABG pO2 Sodium Chloride Carbon Dioxide BUN Creatinine Glucose POC Glucose 148 H 363 H Calcium Total Bilirubin AST Alkaline Phosphatase Troponin T Total Protein Albumin Fluid Glucose 123 H Fluid Total Protein 3.2 L 01/21/17 01/22/17 01/22/17 21:05 05:57 05:57 RBC Hgb 9.0 L Hct 28.3 L D MCV MCH MCHC RDW Plt Count 81 L [place] % (Auto) Lymph # Seg Neutrophils % Seg Neuts % (Manual) Lymphocytes % (Manual) Nucleated RBC % Lymphocytes # (Manual) PT INR APTT Heparin Anti-Xa Level POC ABG pCO2 POC ABG pO2 Sodium 136 L Chloride Carbon Dioxide BUN 76 H Creatinine 2.1 H Glucose 201 H POC Glucose 357 H Calcium 8.2 L Total Bilirubin AST Alkaline Phosphatase 346 H Troponin T Total Protein 5.8 L Albumin 3.1 L Fluid Glucose Fluid Total Protein 01/22/17 01/22/17 01/22/17 05:57 08:02 12:06 RBC Hgb Hct MCV MCH MCHC RDW Plt Count [place] % (Auto) Lymph # Seg Neutrophils % Seg Neuts % (Manual) Lymphocytes % (Manual) Nucleated RBC % Lymphocytes # (Manual) PT 17.1 H INR 1.40 H APTT 69.4 H* Heparin Anti-Xa Level POC ABG pCO2 POC ABG pO2 Sodium Chloride Carbon Dioxide BUN Creatinine Glucose POC Glucose 139 H < 40 L Calcium Total Bilirubin AST Alkaline Phosphatase Troponin T Total Protein Albumin Fluid Glucose Fluid Total Protein 01/22/17 01/22/17 01/22/17 17:05 21:37 23:04 RBC Hgb Hct MCV MCH MCHC RDW Plt Count [place] % (Auto) Lymph # Seg Neutrophils % Seg Neuts % (Manual) Lymphocytes % (Manual) Nucleated RBC % Lymphocytes # (Manual) PT INR APTT Heparin Anti-Xa Level < 0.10 L POC ABG pCO2 POC ABG pO2 Sodium Chloride Carbon Dioxide BUN Creatinine Glucose POC Glucose 214 H 456 H Calcium Total Bilirubin AST Alkaline Phosphatase Troponin T Total Protein Albumin Fluid Glucose Fluid Total Protein 01/22/17 01/22/17 01/23/17 23:04 23:04 04:13 RBC Hgb Hct MCV MCH MCHC RDW Plt Count [place] % (Auto) Lymph # Seg Neutrophils % Seg Neuts % (Manual) Lymphocytes % (Manual) Nucleated RBC % Lymphocytes # (Manual) PT INR APTT Heparin Anti-Xa Level POC ABG pCO2 POC ABG pO2 Sodium Chloride Carbon Dioxide BUN Creatinine Glucose 485 H POC Glucose Calcium Total Bilirubin AST Alkaline Phosphatase Troponin T 0.071 H D 0.053 H D Total Protein Albumin Fluid Glucose Fluid Total Protein 01/23/17 01/23/17 01/23/17 04:13 08:02 13:35 RBC Hgb Hct MCV MCH MCHC RDW Plt Count [place] % (Auto) Lymph # Seg Neutrophils % Seg Neuts % (Manual) Lymphocytes % (Manual) Nucleated RBC % Lymphocytes # (Manual) PT INR APTT Heparin Anti-Xa Level POC ABG pCO2 POC ABG pO2 Sodium 134 L Chloride 94.4 L Carbon Dioxide BUN 78 H Creatinine 2.2 H Glucose 406 H POC Glucose 320 H 301 H Calcium 8.0 L Total Bilirubin AST Alkaline Phosphatase Troponin T Total Protein Albumin Fluid Glucose Fluid Total Protein 01/23/17 01/23/17 01/24/17 16:39 21:15 04:20 RBC Hgb 8.3 L Hct 26.2 L MCV MCH MCHC RDW Plt Count 69 L [place] % (Auto) Lymph # Seg Neutrophils % Seg Neuts % (Manual) Lymphocytes % (Manual) Nucleated RBC % Lymphocytes # (Manual) PT INR APTT Heparin Anti-Xa Level POC ABG pCO2 POC ABG pO2 Sodium Chloride Carbon Dioxide BUN Creatinine Glucose POC Glucose 280 H 377 H Calcium Total Bilirubin AST Alkaline Phosphatase Troponin T Total Protein Albumin Fluid Glucose Fluid Total Protein 01/24/17 01/24/17 01/24/17 11:54 15:26 22:06 RBC Hgb Hct MCV MCH MCHC RDW Plt Count [place] % (Auto) Lymph # Seg Neutrophils % Seg Neuts % (Manual) Lymphocytes % (Manual) Nucleated RBC % Lymphocytes # (Manual) PT INR APTT Heparin Anti-Xa Level POC ABG pCO2 POC ABG pO2 Sodium Chloride Carbon Dioxide BUN Creatinine Glucose POC Glucose 274 H 398 H 403 H Calcium Total Bilirubin AST Alkaline Phosphatase Troponin T Total Protein Albumin Fluid Glucose Fluid Total Protein 01/25/17 01/25/17 05:29 05:29 RBC 3.29 L Hgb 8.7 L Hct 27.4 L MCV 83 L MCH 26 L MCHC RDW 19.8 H Plt Count 71 L [place] % (Auto) 9.7 H Lymph # 0.8 L Seg Neutrophils % 74.7 H Seg Neuts % (Manual) Lymphocytes % (Manual) Nucleated RBC % Lymphocytes # (Manual) PT INR APTT Heparin Anti-Xa Level POC ABG pCO2 POC ABG pO2 Sodium Chloride Carbon Dioxide BUN 67 H Creatinine 1.9 H Glucose 150 H POC Glucose Calcium 8.3 L Total Bilirubin AST Alkaline Phosphatase Troponin T Total Protein Albumin Fluid Glucose Fluid Total Protein
--- NOTE | 2017-01-25 13:59 | Discharge Summary ---
Providers - Providers Date of Admission: 01/18/17 19:10 Date of discharge: 01/25/17 Attending physician: ELTON FREIRE 01/18/17 21:12 Consult to Physician [CONS] Routine Consulting Provider: PAOLA GUILLERMO Reason For Exam: copd Place consult to:: DR PAOLA GUILLERMO Notified:: PITO AT [facility] Phone number called:: [phone] Was contact made?: Yes If yes, spoke with:: PITO AT [facility] Time called:: 23:30 Comment:: NOTTIFY [facility] SERV[facility] TO NOTIFY AM ROUTIN CONSULT PER NURSE 01/23/17 11:28 Consult to Wound/ET Nurse [CONS] NOW Reason For Exam: wound eval 01/24/17 11:18 Consult to Physician [CONS] Routine Consulting Provider: EMILEE ROACH Reason For Exam: thrombocytopenia Place consult to:: hematology Notified:: [employer] Phone number called:: Was contact made?: Yes If yes, spoke with:: [facility] Time called:: 13:21 Primary care physician: MUSEUM TECHNICIAN Hospitalization Condition: Fair Procedures: Chest x-ray obtained on 01/19/2017 showed cardiomegaly. Pulmonary perfusion imaging on 01/19/2017 showed intermediate probability for pulmonary embolism. Abdominal ultrasound on 01/19/2017 showed small mediastinitis, slightly coarse echotexture of the liver without focal months for significant cirrhotic changes , slightly echogenic kidneys consistent with medical renal disease. CT-guided paracentesis on 01/22/2017 drained about 1500 mL of ascitic fluid. Hospital course: 61 y/o male with HX of copd, Htn, CHF, history of PE, T2DM is in today with increasing Sob for 1 week, productive Cough and pleuritic chest pain. His chest x-ray on admission did not show any acute infiltrate. Was admitted with COPD protocol and maintained with nebulizer breathing treatment, tapering dose of IV steroid and IV antibiotics. His symptoms continued to improve. Patient also noted to have elevated creatinine which was at his baseline. His 2-D echocardiogram showed ejection fraction of 40-45% which is improved from his prior ejection fraction obtained on 2016 showed ejection fraction 15-20%. He was continued on Bumex IV and renal function was monitored. His lower extremity swelling was improved but continued to have significant ascites. Acetic fluid was drained by CT-guided paracentesis. At admission he had VQ scan for possible PE which resulted intermediate probability. Was initially placed on heparin drip and lower extremity that is Doppler was obtained which did not show any acute DVT. Pulmonary recommended not to place him on any anticoagulation. While he was in the hospital getting heparin drip his IV got infiltrated and he developed blisters and erythema with bruises at the IV infiltrated site. Wound care was consulted and he was recommended to maintain dressing about the affected area. Patient also noted to have thrombocytopenia which could be related to heparin vs his prior history of alcohol abuse and chronic liver disease. He will follow-up with his primary care physician and recommended to have repeat CBC in 1 week. He was discharge home in stable condition. He Will follow up outpatient wound care clinic following discharge. Discharge Diagnosis: (1) Acute exacerbation of chronic obstructive pulmonary disease (COPD) Current Visit: Yes Status: resolved (2) Acute on chronic systolic heart failure Current Visit: Yes Status: Acute Plan to address problem: cont Bumex po Ef 40 to 45% (3) Elevated d-dimer Current Visit: Yes Status: Acute Plan to address problem: intermediate probability for PE on VQ scan Cannot get CT of chest for CKD discussed pulmonary for further recommendation LE doppler was negative for DVT pulmonary recommended to stop heparin and to monitor clinically pt refused ABG (4) Accelerated hypertension Current Visit: No Status: resolved Plan to address problem: better control now. (5) elevated troponin Current Visit: No Status: Acute Could be due to CHF exacerbation with worsening renal function no chest pain, 2-D echocardiogram showed ejection fraction 40-45% which actually improved compared to his prior echo results. (6)CKD stage 3 Current Visit: No Status: chronic Plan to address problem: Avoid any nephrotoxins his baseline creatinine is 2.1 to 2.3 (7) Diabetes mellitus Current Visit: No Status: Chronic Qualifiers: Diabetes mellitus type: type 2 Diabetes mellitus complication status: with hypoglycemia Diabetes mellitus complication detail: without coma Diabetic retinopathy severity: D Proliferative retinopathy type: P Diabetes mellitus macular edema: D Diabetes mellitus equipment operator intermodal yard insulin use: D Laterality: L Chronic kidney disease stage: C Plan to address problem: was hypoglycemic, reduce back his insulin dose to 25unit at bedtime (8) Ascitis Current Visit: No Status: Acute could be due to CHF and alcoholic liver disease he has h/o alcohol abuse in the past but states that he quit several years ago s/p image guided paracenthesis drained 1.5 L of fluid (9) Acute skin eruption of discoloration, elevations, blisters Current Visit: Yes Status: Acute likely from heparin infiltration from IV cont wound care (10) thrombocytopenia Current Visit: Yes Status: Acute on chronic platelet count was normal on 2014 b12 and folate normal could be due to heparin no further drop, repeat CBC in one week (11) anemia Current Visit: Yes Status: Acute on chronic b12 and folate normal stool for occult blood was negative could be due to CKD (12) tobacco abuse and Remote history of alcohol abuse Patient was counseled for tobacco cessation Disposition: DISCHARGED TO HOME OR SELFCARE Time spent for discharge: 32 minutes Core Measure Documentation - Palliative Care Palliative Care/ Comfort Measures: Not Applicable - Core Measures Any of the following diagnoses?: heart failure - Heart Failure Discharge Requirements HUDSON/ARB for LVSD if EF <40%: Yes Beta clarisa at discharge: Yes Exam - Physical Exam Narrative exam: GENERAL: Elderly AAM lying on bed appeared to be in no discomfort. HEENT: Normocephalic. Atraumatic. No conjunctival congestion or icterus. Patient has moist mucous membranes. NECK: Supple. Trachea midline. CHEST/LUNGS: decrease BS auscultated bilaterally, breathing nonlabored. few bibasilar crackles. HEART/CARDIOVASCULAR: Regular in rate and rhythm. S1 and S2 positive. ABDOMEN: Abdomen is soft, nontender. Patient has normal bowel sounds. SKIN: There is no rash. Warm and dry. NEURO: No focal motor deficit. Follows command. MUSCULOSKELETAL: No joint effusion or tenderness. EXTRIMITY: 1+ edema, no cyanosis or clubbing. rt upper extremity with wound dressing PSYCH: Cooperative. - Constitutional Vitals: Temp Pulse Resp BP Pulse Ox 97.5 F L 84 20 142/69 99 01/25/17 08:00 01/25/17 13:42 01/25/17 13:42 01/25/17 08:00 01/25/17 08:00 Plan Activity: advance as tolerated Weight Bearing Status: Weight Bear as Tolerated Diet: diabetic, renal Wound: per wound nurse instructions, other (f/u at wound care clinic) Follow up with: [facility] [Provider Group] - 7 Days PRIMARY CARE, [Primary Care Provider] - 3-5 Days Pending Studies Repeat CBC in 1 week.
[2017-01-25] MEDS ORDERED: D50W (25GM) IV ONE (15:00)
[2017-01-25] MEDS ORDERED: LEVEMIR SUB-Q SCH (22:00)
[2017-01-26 09:27] LABS: Basophils Body Fluid 0 %; Eosinophils Body Fluid 0 %; Reactive Lymph Body Fluid 0 %
== END 2017-01-25 16:34 | disposition home or self-care (01) | DRG 291 ==
LOC: ED 14:39 → 4A 19:10
PROVIDERS: ADMIT Internal Medicine; ATTEND Internal Medicine
PROC: 0W9G3ZZ Drainage of Peritoneal Cavity, Percutaneous Approach (ICD-10-PCS; principal; 2017-01-22)
DX: I13.0 Hypertensive heart and chronic kidney disease with heart failure and stage 1 through stage 4 chronic kidney disease, or unspecified chronic kidney disease (principal); I50.23 Acute on chronic systolic (congestive) heart failure; J96.01 Acute respiratory failure with hypoxia; J44.0 Chronic obstructive pulmonary disease with (acute) lower respiratory infection; N17.9 Acute kidney failure, unspecified; D68.9 Coagulation defect, unspecified; R18.8 Other ascites; J44.1 Chronic obstructive pulmonary disease with (acute) exacerbation; J20.9 Acute bronchitis, unspecified; I27.2 Other secondary pulmonary hypertension; Z86.711 Personal history of pulmonary embolism; E78.5 Hyperlipidemia, unspecified; F17.210 Nicotine dependence, cigarettes, uncomplicated; I51.7 Cardiomegaly; N18.3 Chronic kidney disease, stage 3 (moderate); E11.22 Type 2 diabetes mellitus with diabetic chronic kidney disease; I25.10 Atherosclerotic heart disease of native coronary artery without angina pectoris; T45.515A Adverse effect of anticoagulants, initial encounter; Y92.89 Other specified places as the place of occurrence of the external cause; R21 Rash and other nonspecific skin eruption; D69.6 Thrombocytopenia, unspecified; F10.10 Alcohol abuse, uncomplicated; K76.9 Liver disease, unspecified
CPT/HCPCS: 36415; 36600; 49083; 71020; 76700; 78582; 80048; 80053; 80061; 80074; 82040; 82150; 82270; 82607; 82728; 82747; 82803; 82947; 82962; 83550; 83605; 84160; 84443; 84466; 84484; 85007; 85014; 85018; 85025; 85049; 85379; 85520; 85610; 85730; 88112; 88305; 89051; 93005; 93010; 93306; 93970; 94640; 96374; 96375; A6250; A9270-GY; A9540; A9558; J0360; J0610; J1170; J1644; J1650; J1815; J1818; J1940; J1956; J2270; J2405; J2920; J2930; J7042; J7512

== ENCOUNTER 2017-01-29 10:01 | Outpatient (CLI) | payer OTHER | END 2017-01-29 10:02 | disposition home or self-care (01) | LOC: WOUND 10:01 | PROVIDERS: ATTEND Nurse Practitioner | DX: T80.818A Extravasation of other vesicant agent, initial encounter (principal); I11.0 Hypertensive heart disease with heart failure; I50.9 Heart failure, unspecified; E11.9 Type 2 diabetes mellitus without complications; J44.9 Chronic obstructive pulmonary disease, unspecified; I25.10 Atherosclerotic heart disease of native coronary artery without angina pectoris; E78.5 Hyperlipidemia, unspecified; Z87.891 Personal history of nicotine dependence; Z86.711 Personal history of pulmonary embolism; Y84.8 Other medical procedures as the cause of abnormal reaction of the patient, or of later complication, without mention of misadventure at the time of the procedure; Y92.9 Unspecified place or not applicable | CPT/HCPCS: 99205; 99215; G0463 ==

== ENCOUNTER 2017-02-02 14:11 | Outpatient (CLI) | payer OTHER | END 2017-02-02 14:12 | disposition home or self-care (01) | LOC: WOUND 14:11 | PROVIDERS: ATTEND Internal Medicine | DX: T81.89XD Other complications of procedures, not elsewhere classified, subsequent encounter (principal); I11.0 Hypertensive heart disease with heart failure; I50.9 Heart failure, unspecified; J44.9 Chronic obstructive pulmonary disease, unspecified; Z86.711 Personal history of pulmonary embolism; E11.9 Type 2 diabetes mellitus without complications; I25.10 Atherosclerotic heart disease of native coronary artery without angina pectoris; E78.5 Hyperlipidemia, unspecified; Z87.891 Personal history of nicotine dependence; Y83.8 Other surgical procedures as the cause of abnormal reaction of the patient, or of later complication, without mention of misadventure at the time of the procedure | CPT/HCPCS: 99213; G0463 ==